=== PATIENT | male | born 1950 | race Caucasian/White ===

== ENCOUNTER 2017-07-18 18:41 | Emergency (ER) | payer BC, OTHER ==
--- NOTE | 2017-07-18 19:03 | EDPHY ---
HPI/HX/ROS/PE/MDM Narrative: CHIEF COMPLAINT: Finger injury; near-syncope in triage HPI: The patient is a 66 y/o male with cardiac disease history complaining of left finger pain secondary to falling on his hand one hour ago. He reports tripping over the vacuum while walking and landed poorly on his left hand. He had immediate pain and deformity in his left 4th and 5th fingers and "popped" his little finger back into a more anatomic position, his ring finger is still displaced. He denies striking his head or losing consciousness. He does think he bumped the left side of his chest on the ground, but denies pain or dyspnea. While in triage he became lightheaded and felt like he would faint and was brought back to a room promptly for this. He does not feel lightheaded currently and denies chest pain, dyspnea, or other complaints. He admits to drinking alcohol tonight. REVIEW OF SYSTEMS: Aside from elements discussed in the HPI, a comprehensive 10-point review of systems was reviewed and is negative. PMH: Hypercholesterolemia, asthma, hypertension/pulmonary hypertension, CAD, hernia repair FAMILY HISTORY: Father had CA, family history of unexplained SOCIAL HISTORY: Plays [employer]. Lives independently in [place]. Prior medical records reviewed including cardiac cath report 01/22/10 and ED visit 01/25/12 for fall. PHYSICAL EXAM: General:Patient is alert, in no acute distress. ENT:Eyes are normal to inspection. ENT inspection normal. Neck: Normal inspection. Full range of motion. Respiratory:No respiratory distress. Breath sounds normal bilaterally. Cardiovascular: Regular rate and rhythm. Strong peripheral pulses. Normal cap refill. Abdomen:The abdomen is nontender to palpation. There are no peritoneal signs. Back: Normal to inspection. No tenderness to palpation. Skin: Normal color. No rash. Warm and mildly diaphoretic. Extremities: Left hand shows dislocation deformity to PIPJ left ring finger, normal cap refill, and skin is intact. Otherwise normal appearance. Full range of motion. Neuro: Oriented x3. Normal motor function. Normal sensory function. ED Course: This is a 66 y/o male with cardiac disease who presents with left ring finger pain and deformity secondary to what he describes as a mechanical fall one hour ago. He has a dislocation deformity to the PIP joint of his left ring finger with normal cap refill and intact skin. He is mildly diaphoretic, but otherwise well-appearing. Plan for IV, labs, EKG, and hand x-ray. 1L IV NS ordered. The 12 lead EKG was interpreted by myself. See hard copy and/or "tracemaster" electronic copy for interpretation. Left hand x-ray: dislocation of left ring PIP joint. Possible chip or avulsion fractures suspected at the base of the third and fifth middle phalanx at the PIP joint Reevaluated patient and discussed treatment options for dislocation. He would like to try IV pain medication and manual reduction without local anesthetic first. He is also now complaining of left rib pain where he struck the ground. Pain is worse with inspiration. Chest x-ray ordered. Chest x-ray: negative for acute process. Procedure: Reduction of dislocated left ring PIP joint Time-out completed immediately before the procedure. IV established. Placed on pulse oximeter and monitor. Neurovascular exam intact pre-procedure. Given 50mcg IV Fentanyl for pain. The left ring finger PIPJ dislocation was reduced using traction. Reassessed post-procedure. Neurovascular status intact-Normal Motor and sensory exam. Exam indicated reduction. Confirmed reduction on X-ray. Splint applied by tech. The procedure was performed by myself, Dr. Franco. Patient will be discharged in splint with standard dislocation and contusion care and follow up instructions. He's been referred to hand surgery for follow up. Return precautions discussed. He is comfortable with this plan. - Data Points Imaging Results: Imaging Impressions Finger X-Ray 07/18/17 19:04 Impression: 1. Dislocation of the left fourth middle phalanx at the PIP joint with displacement of the distal aspect along the dorsal ulnar side. 2. Possible chip or avulsion fractures suspected at the base of the third and fifth middle phalanx at the PIP joint. Clinical correlation recommended. Chest X-Ray 07/18/17 19:25 Impression: No new abnormality seen within the chest. Imaging: I viewed and interpreted images myself Laboratory Results: Laboratory Results 07/18/17 19:06 07/18/17 19:06 07/18/17 07/18/17 19:06 19:06 WBC 4.63 10^3/uL 10^3/uL (3.80-9.50) RBC 4.41 10^6/uL 10^6/uL (4.40-6.38) Hgb 14.9 g/dL g/dL (13.7-17.5) Hct 41.5 % % (40.0-51.0) MCV 94.1 fL fL (81.5-99.8) MCH 33.8 pg pg (27.9-34.1) MCHC 35.9 g/dL g/dL (32.4-36.7) RDW 12.7 % % (11.5-15.2) Plt Count 174 10^3/uL 10^3/uL (150-400) MPV 9.5 fL fL (8.7-11.7) Neut % (Auto) 56.4 % % (39.3-74.2) Lymph % (Auto) 26.8 % % (15.0-45.0) [place] % (Auto) 12.7 % % (4.5-13.0) Eos % (Auto) 2.4 % % (0.6-7.6) Baso % (Auto) 1.3 % % (0.3-1.7) Nucleat RBC Rel Count 0.0 % % (0.0-0.2) Absolute Neuts (auto) 2.61 10^3/uL 10^3/uL (1.70-6.50) Absolute Lymphs (auto) 1.24 10^3/uL 10^3/uL (1.00-3.00) Absolute Monos (auto) 0.59 10^3/uL 10^3/uL (0.30-0.80) Absolute Eos (auto) 0.11 10^3/uL 10^3/uL (0.03-0.40) Absolute Basos (auto) 0.06 10^3/uL 10^3/uL (0.02-0.10) Absolute Nucleated RBC 0.00 10^3/uL 10^3/uL (0-0.01) Immature Gran % 0.4 % % (0.0-1.1) Immature Gran # 0.02 10^3/uL 10^3/uL (0.00-0.10) Sodium 135 mEq/L mEq/L (135-145) Potassium 3.3 mEq/L L mEq/L (3.5-5.2) Chloride 89 mEq/L L mEq/L (97-110) Carbon Dioxide 26 mEq/l mEq/l (22-31) Anion Gap 20 mEq/L H mEq/L (8-16) BUN 14 mg/dL mg/dL (7-23) Creatinine 1.4 mg/dL H mg/dL (0.7-1.3) Estimated GFR 51 Glucose 151 mg/dL H mg/dL (70-100) Calcium 9.5 mg/dL mg/dL (8.5-10.4) Medications Given: Discontinued Medications Fentanyl (Sublimaze) 50 mcg IVP EDNOW ONE Stop: 07/18/17 19:56 Last Admin: 07/18/17 19:59 Dose: 50 mcg Sodium Chloride (Ns) 1,000 mls @ 0 mls/hr IV EDNOW ONE; Wide Open PRN Reason: Protocol Stop: 07/18/17 19:13 Last Admin: 07/18/17 19:16 Dose: 1,000 mls General Time Seen by Provider: 07/18/17 18:55 Initial Vital Signs: Initial Vital Signs Temperature (C) 36.8 C 07/18/17 19:02 Heart Rate 100 07/18/17 19:02 Respiratory Rate 16 07/18/17 19:02 O2 Sat (%) 100 07/18/17 19:02 O2 Delivery Mode Room Air O2 (L/minute) 2 Allergies/Adverse Reactions: Penicillins Allergy (Intermediate, Verified 01/25/12 21:12) Rash Home Medications: Medication Instructions Recorded Albuterol 5 mg/ml INH [Proventil] 0 mg IH 01/25/12 Albuterol Hfa Anes Only [Proair 2 puffs IH QID 01/25/12 Hfa Icu (RX)] Aspirin [Aspirin 81mg (OTC)] 81 mg PO DAILY 01/25/12 Carvedilol [Coreg] 0 mg PO 01/25/12 Lisinopril 0 mg PO 01/25/12 Simvastatin 0 mg PO 01/25/12 Departure - Departure Disposition: Home, Routine, Self-Care Clinical Impression: Dislocation of left ring finger Qualifiers: Encounter type: initial encounter Qualified Code(s): S63.255A - Unspecified dislocation of left ring finger, initial encounter Closed avulsion fracture of proximal phalanx of finger Qualifiers: Encounter type: initial encounter Qualified Code(s): S62.619A - Displaced fracture of proximal phalanx of unspecified finger, initial encounter for closed fracture Contusion of rib on left side Qualifiers: Encounter type: initial encounter Qualified Code(s): S20.212A - Contusion of left front wall of thorax, initial encounter Condition: Good Instructions: Finger Dislocation (ED), Rib Contusion (ED) Additional Instructions: 1. Take 600mg ibuprofen every 6-8 hours as needed for pain over the next few days. You can also apply ice to sore areas intermittently over the next 24-48 hours if helpful for pain. 2. Keep splint on until follow up with hand specialist. 3. Follow up with hand surgeon next week for reevaluation. 4. Return to the ED for severe pain, chest pain, difficulty breathing, weakness or numbness in your hand, or other worsening of condition. Referrals: Ventura Spencer MD [Primary Care Provider] - As per Instructions David Bustillos MD [Medical Doctor] - As per Instructions Report Scribed for: Ezio Franco Report Scribed by: Donna Hurtado Date of Report: 07/18/17 Time of Report: 19:09 Physician Review and Approval Statement: Portions of this note were transcribed by an ED scribe. I personally performed the history, physical exam, and medical decision making; and confirm the accuracy of the information in the transcribed note.
--- NOTE | 2017-07-18 19:05 | CPEKG ---
Heart Rate: 95 RR Interval: 632 P-R Interval: 124 QRSD Interval: 92 QT Interval: 356 QTC Interval: 448 P [place]: 55 QRS [place]: 30 T Wave [place]: 41 EKG Severity - NORMAL ECG - EKG Impression: SINUS RHYTHM Electronically Signed By: Ezio Franco 19-Jul-2017 16:36:46
[2017-07-18 19:12] LABS: PLATELET COUNT 174 10^3/uL (150-400)
[2017-07-18] MEDS ORDERED: NS 1,000 ML IV ONE (19:12)
[2017-07-18] MEDS ORDERED: fentaNYL 100 MCG/2 ML INJ ONE (19:47)
[2017-07-18] MEDS ORDERED: fentaNYL 100 MCG/2 ML INJ IVP ONE (19:55)
[2017-07-18 21:11] VITALS: BP 119/67; PULSE 85; RESP 19; TEMP 98.2; O2SAT 93
== END 2017-07-18 21:13 | disposition home or self-care (01) ==
PROC: 0RSXX5Z Reposition Left Finger Phalangeal Joint with External Fixation Device, External Approach (ICD-10-PCS; principal; 2017-07-18)
DX: S63.285A Dislocation of proximal interphalangeal joint of left ring finger, initial encounter (principal); I10 Essential (primary) hypertension; J45.909 Unspecified asthma, uncomplicated; I25.10 Atherosclerotic heart disease of native coronary artery without angina pectoris; S20.212A Contusion of left front wall of thorax, initial encounter; E86.9 Volume depletion, unspecified; Z79.82 Long term (current) use of aspirin; W01.0XXA Fall on same level from slipping, tripping and stumbling without subsequent striking against object, initial encounter; Y99.8 Other external cause status; Y93.01 Activity, walking, marching and hiking
CPT/HCPCS: 26770; 71046; 73140; 93005; 96361; 96374; 99285; J3010

== ENCOUNTER → 2017-10-23 | Outpatient (CLI) | payer OTHER | LOC: FIMAGING 17:38 | PROVIDERS: ATTEND Internal Medicine | DX: G31.9 Degenerative disease of nervous system, unspecified (principal); R90.82 White matter disease, unspecified ==

== ENCOUNTER 2017-11-04 19:08 | Emergency (ER) | payer OTHER ==
--- NOTE | 2017-11-04 20:14 | EDPHY ---
H & P Smoking Status: Never smoked Time Seen by Provider: 11/04/17 20:13 HPI/ROS: Chief complaint. Bilateral feet swelling HPI. 66-year-old male presents emergency but with bilateral foot swelling for 1 day as well as bilateral calf pain. No similar symptoms previously. No chest pain or shortness of breath. No recent travel though he has had some decreased activity recently. No injury. No fever. ROS Constitutional. no fever/chills, no weakness Eyes. no problems with vision ENT. no sore throat, no nasal drainage Cardiovascular. no chest pain Respiratory. no shortness of breath, no cough Abdominal. no abdominal pain, no nausea/vomiting, no diarrhea . no problems urinating MS. Bilateral foot swelling and calf pain Skin. no rash Lymph. no swollen glands Neuro. no headache, no dizziness, no difficulty walking or with speech (German Bajwa) Past Medical/Surgical History: Hyperlipidemia, hypertension, asthma, cardiomyopathy, pulmonary hypertension, atrial fibrillation (German Bajwa) Social History: , nonsmoker, no alcohol (German Bajwa) Physical Exam: General Appearance: Alert well-developed male mild distress vital signs stable Eyes: Pupils equal and round no pallor or injection. ENT, Mouth: Mucous membranes are moist. Respiratory: There are no retractions, lungs are clear to auscultation. Cardiovascular: Regular rate and rhythm. Gastrointestinal: Abdomen is soft and nontender, no masses, bowel sounds normal. Neurological: Awake and alert, sensory and motor exams grossly normal. Skin: Warm and dry, no rashes. Musculoskeletal: Neck is supple nontender. Extremities bilateral moderate foot swelling and calf tenderness Psychiatric: Patient is oriented X 3, there is no agitation. (German Bajwa) Constitutional: Initial Vital Signs Temperature (C) 36.7 C 11/04/17 19:40 Heart Rate 97 11/04/17 19:40 Respiratory Rate 18 11/04/17 19:40 Blood Pressure 142/107 H 11/04/17 19:40 O2 Sat (%) 92 11/04/17 19:40 O2 Delivery Mode Room Air Allergies/Adverse Reactions: Penicillins Allergy (Intermediate, Verified 11/04/17 19:37) Rash bee venom protein (honey bee) Allergy (Verified 11/04/17 19:37) Home Medications: Medication Instructions Recorded Albuterol 5 mg/ml INH [Proventil] 0 mg IH 01/25/12 Albuterol Hfa Anes Only [Proair 2 puffs IH QID 01/25/12 Hfa Icu (RX)] Carvedilol [Coreg] 0 mg PO 01/25/12 Lisinopril 0 mg PO 01/25/12 Simvastatin 0 mg PO 01/25/12 Eliquis 11/04/17 Furosemide [Lasix 40 MG (*)] 40 mg PO DAILY #4 tab 11/04/17 Medical Decision Making - Diagnostics Imaging Results: Imaging Impressions Chest X-Ray 11/04/17 20:14 Impression: Borderline compensated CHF without acute decompensation. Extremity Venous Study 11/04/17 20:25 Impression: No evidence of deep vein thrombosis in the right or left lower extremity. Results communicated to Dr. Bajwa at 10:21 pm. Chest x-ray interpreted by me appears to show mild CHF. No evidence for pneumonia (German Bajwa) Procedures: IV normal saline (German Bajwa) ED Course/Re-evaluation: Patient remains stable (German Bajwa) Ultrasound results show no evidence of DVT in either leg. Patient has been given a limited supply of Lasix by Dr. Bajwa. Patient be discharged have close follow-up with his PCP. Additionally return precautions discussed with him. He understands return emergency room if develops worsening shortness of breath, worsening swelling questions or concerns. (Luis Angel Branham) Differential Diagnosis: I considered CHF as well as DVT as well as dependent edema (German Bajwa) Care Turn Over: Care to Dr. Branham at 10:00 p.m. (German Bajwa) - Data Points Laboratory Results: Laboratory Results 11/04/17 20:07 11/04/17 20:07 11/04/17 11/04/17 20:07 20:07 WBC 4.99 10^3/uL 10^3/uL (3.80-9.50) RBC 3.63 10^6/uL L 10^6/uL (4.40-6.38) Hgb 12.7 g/dL L g/dL (13.7-17.5) Hct 34.7 % L % (40.0-51.0) MCV 95.6 fL fL (81.5-99.8) MCH 35.0 pg H pg (27.9-34.1) MCHC 36.6 g/dL g/dL (32.4-36.7) RDW 12.7 % % (11.5-15.2) Plt Count 199 10^3/uL 10^3/uL (150-400) MPV 9.4 fL fL (8.7-11.7) Neut % (Auto) 61.0 % % (39.3-74.2) Lymph % (Auto) 24.2 % % (15.0-45.0) [place] % (Auto) 10.4 % % (4.5-13.0) Eos % (Auto) 2.4 % % (0.6-7.6) Baso % (Auto) 1.4 % % (0.3-1.7) Nucleat RBC Rel Count 0.0 % % (0.0-0.2) Absolute Neuts (auto) 3.04 10^3/uL 10^3/uL (1.70-6.50) Absolute Lymphs (auto) 1.21 10^3/uL 10^3/uL (1.00-3.00) Absolute Monos (auto) 0.52 10^3/uL 10^3/uL (0.30-0.80) Absolute Eos (auto) 0.12 10^3/uL 10^3/uL (0.03-0.40) Absolute Basos (auto) 0.07 10^3/uL 10^3/uL (0.02-0.10) Absolute Nucleated RBC 0.00 10^3/uL 10^3/uL (0-0.01) Immature Gran % 0.6 % % (0.0-1.1) Immature Gran # 0.03 10^3/uL 10^3/uL (0.00-0.10) Sodium 134 mEq/L L mEq/L (135-145) Potassium 3.4 mEq/L mEq/L (3.3-5.0) Chloride 97 mEq/L mEq/L (97-110) Carbon Dioxide 25 mEq/l mEq/l (22-31) Anion Gap 12 mEq/L mEq/L (8-16) BUN 15 mg/dL mg/dL (7-23) Creatinine 1.0 mg/dL mg/dL (0.7-1.3) Estimated GFR > 60 Glucose 84 mg/dL mg/dL (70-100) Calcium 9.6 mg/dL mg/dL (8.5-10.4) NT-Pro-B Natriuret Pep 961 pg/mL H pg/mL (0-125) Departure - Departure Disposition: Home, Routine, Self-Care Clinical Impression: Pedal edema Condition: Good Instructions: Edema (ED) Additional Instructions: Elevate legs as much as possible. Activity as tolerated. Lasix daily to help get rid of the swelling in your feet. Return for worsening symptoms. Recheck by Dr. Spencer in 2-3 days Referrals: Ventura Spencer MD [Primary Care Provider] - 2-3 days, if not improved Prescriptions: Furosemide [Lasix 40 MG (*)] 40 mg PO DAILY #4 tab
[2017-11-04 20:33] LABS: PLATELET COUNT 199 10^3/uL (150-400)
[2017-11-04 22:46] VITALS: BP 161/94
== END 2017-11-04 22:46 | disposition home or self-care (01) ==
DX: R60.0 Localized edema (principal); I10 Essential (primary) hypertension; J45.909 Unspecified asthma, uncomplicated; Z79.01 Long term (current) use of anticoagulants

== ENCOUNTER 2018-01-28 17:43 | Inpatient (IN) | payer OTHER ==
--- NOTE | 2018-01-28 17:48 | EDPHY ---
H & P Time Seen by Provider: 01/28/18 17:47 HPI/ROS: CHIEF COMPLAINT: Low blood pressure HISTORY OF PRESENT ILLNESS: Patient tells me wanted to [facility] today to learn how to use his home blood pressure cuff and he was sent here because his blood pressure was"in the 70s."Essentially has no symptoms except for feeling a little bit tired over the past couple of weeks. He says sometimes he gets dizzy at home when he stands up but no syncope and no palpitations. Denies chest pain or shortness of breath to me. REVIEW OF SYSTEMS: Eye: no change in vision ENT: no sore throat Cardiac: No chest pain, no syncope, no palpitations. Pulmonary: no cough or SOB Abdomen: no vomiting, diarrhea, abdominal pain Musculoskeletal: No leg swelling. Skin: no rash Neuro: no headache, family notes intermittent confusion last this past weekend Constitutional: no fever : no urinary symptoms A comprehensive 10 point review of systems is otherwise negative aside from elements mentioned in the history of present illness. PAST MEDICAL HISTORY: Atrial fibrillation on Eliquis, hypertension, hyperlipidemia, asthma. Social history: Nonsmoker, primary care [facility]. Stopped Lasix 2 weeks ago. General Appearance: Alert and conversant, cooperative. Eyes: No scleral icterus. ENT, Mouth: Dry mucous membranes. Respiratory: Normal respiratory effort, breath sounds equal, lungs are clear to auscultation. Cardiovascular: Distant heart sounds, no murmur. Gastrointestinal: Abdomen is soft and non tender. Neurological: Alert, face symmetric, normal motor and sensory in extremities. Normal [id number] bilaterally, no pronator drift, fluent speech. Not confused here, normal sensorium. Skin: Warm and dry, no rashes. Musculoskeletal: No peripheral edema. Psychiatric: Not agitated. Emergency Department course/MDM: Patient says he does not eat or drink very much. He has a dry tongue, will give IV fluids, EKG and labs, differential includes likely orthostatic hypotension. 1850: Re-examined, has tightness in his chest and a bit of shortness of breath feels like his asthma. Very slight expiratory wheezing. Chest x-ray and D- dimer ordered. 1924: Chest x-ray negative personally interpreted, D-dimer less than point 1 times age. EKG not acutely ischemic. 193: The patient now severe nausea and vomiting, Zofran 4 mg IV. Will admit for treatment and evaluation, the patient still says he "feels terrible" but no definite diagnosis at this time. Smoking Status: Never smoked Constitutional: Initial Vital Signs Temperature (C) 36.6 C 01/28/18 17:47 Heart Rate 89 01/28/18 17:47 Respiratory Rate 18 01/28/18 17:47 Blood Pressure 115/83 H 01/28/18 17:47 O2 Sat (%) 92 01/28/18 17:47 O2 Delivery Mode Room Air Allergies/Adverse Reactions: sunflower seed Allergy (Severe, Unverified 01/28/18 20:33) Anaphylaxis Penicillins Allergy (Intermediate, Verified 11/04/17 19:37) Rash bee venom protein (honey bee) Allergy (Verified 11/04/17 19:37) Home Medications: Medication Instructions Recorded Albuterol [Proventil Inhaler HFA 1 - 2 puffs IH Q4H PRN 01/28/18 (*)] Apixaban [Eliquis] 5 mg PO BID 01/28/18 Budesonide 180 Mcg INH [Pulmicort 1 puffs IH DAILY 01/28/18 180Mcg Flexhaler (*)] Carvedilol [Coreg (*)] 25 mg PO BIDMEAL 01/28/18 Cholecalciferol Vit D3 [Vitamin D3 2,000 units PO DAILY 01/28/18 (*)] Furosemide [Lasix 40 MG (*)] 40 mg PO DAILY PRN 01/28/18 Lisinopril [Zestril 10 mg (*)] 10 mg PO DAILY 01/28/18 Potassium Cl [Klor-Con 20 meq (*)] 20 meq PO DAILY PRN 01/28/18 Simvastatin [Zocor] 40 mg PO HS 01/28/18 Medical Decision Making - Diagnostics EKG Interpretation: 12-lead EKG interpreted by me; official reading is in computer system. My interpretation is sinus rhythm rate 93 with late anterior RS transition otherwise normal. Imaging Results: Imaging Impressions Chest X-Ray 01/28/18 18:49 Impression: No evidence for acute cardiopulmonary abnormality. Stable chronic findings as above. Consult/Admit Bed Type: [place] [id number] - Data Points Laboratory Results: Laboratory Results 01/28/18 17:55 01/28/18 17:55 Medications Given: Apixaban (Eliquis) 5 mg PO BID [facility] Stop: 07/27/18 21:59 Last Admin: 01/29/18 08:05 Dose: 5 mg Atorvastatin Calcium (Lipitor) 20 mg PO DAILY [facility] Stop: 07/28/18 08:59 Last Admin: 01/29/18 08:04 Dose: 20 mg Carvedilol (Coreg) 25 mg PO BIDMEAL [facility] Stop: 07/27/18 22:44 Last Admin: 01/29/18 08:04 Dose: 25 mg Cholecalciferol (Vitamin D) 2,000 units PO DAILY [facility] Stop: 07/28/18 08:59 Last Admin: 01/29/18 08:05 Dose: 2,000 units Lisinopril (Zestril) 10 mg PO DAILY [facility] Stop: 07/28/18 08:59 Last Admin: 01/29/18 08:04 Dose: 10 mg Discontinued Medications Albuterol (Proventil Inhaler) 1 - 2 puffs IH Q4H [facility] Stop: 07/27/18 21:44 Last Admin: 01/28/18 21:59 Dose: Not Given Albuterol (Proventil Inhaler) 1 - 2 puffs IH Q4H [facility] Stop: 07/28/18 01:59 Last Admin: 01/29/18 05:22 Dose: Not Given Sodium Chloride (Ns) 500 mls @ 0 mls/hr IV EDNOW ONE; Wide Open PRN Reason: Protocol Stop: 01/28/18 17:55 Last Admin: 01/28/18 17:59 Dose: 500 mls Sodium Chloride (Ns) 1,000 mls @ 0 mls/hr IV EDNOW ONE; Wide Open PRN Reason: Protocol Stop: 01/28/18 19:31 Last Admin: 01/28/18 19:39 Dose: Not Given Ondansetron HCl (Zofran) 4 mg IVP EDNOW ONE Stop: 01/28/18 19:31 Last Admin: 01/28/18 19:32 Dose: 4 mg Point of Care Test Results: Chemistry 01/28/18 18:47 POC Troponin I 0.04 ng/mL ng/mL (0.00-0.08) Departure - Departure Disposition: [facility] Acute Clinical Impression: Dizziness Hypotension Qualifiers: Hypotension type: unspecified hypotension type Qualified Code(s): I95.9 - Hypotension, unspecified Condition: Good
[2018-01-28] MEDS ORDERED: NS 500 ML IV ONE (17:54)
[2018-01-28 18:06] LABS: PLATELET COUNT 150 10^3/uL (150-400)
--- NOTE | 2018-01-28 19:22 | CPEKG ---
Test Reason : OPEN Blood Pressure : / mmHG Vent. Rate : 093 BPM Atrial Rate : 094 BPM P-R Int : 121 ms QRS Dur : 083 ms QT Int : 367 ms P-R-T Axes : 000 016 057 degrees QTc Int : 457 ms Sinus rhythm Late anterior RS transition Confirmed by Valdo Dia ([id number]) on 01/28/2018 7:21:40 PM Referred By: Confirmed By:Valdo Dia
[2018-01-28] MEDS ORDERED: ONDANSETRON 4 MG/2 ML VIAL ONE (19:29)
[2018-01-28] MEDS ORDERED: ONDANSETRON 4 MG/2 ML VIAL IVP ONE (19:30)
[2018-01-28] MEDS ORDERED: NS 1,000 ML IV ONE (19:30)
[2018-01-28] MEDS ORDERED: ONDANSETRON DISINTEGRATING 4 MG TAB PO PRN (21:30)
[2018-01-28] MEDS ORDERED: ONDANSETRON 4 MG/2 ML VIAL IVP PRN (21:30)
[2018-01-28] MEDS ORDERED: oxyCODONE IR 5 MG TAB PO PRN (21:30)
[2018-01-28] MEDS ORDERED: HYDROCODONE/APAP 5/325 TAB PO PRN (21:30)
[2018-01-28] MEDS ORDERED: FUROSEMIDE 40 MG TAB PO PRN (21:36)
[2018-01-28] MEDS ORDERED: POTASSIUM CL 20 MEQ TAB PO PRN (21:36)
[2018-01-28] MEDS ORDERED: ALBUTEROL 60 PUFFS/8 GM MDI IH SCH (21:45)
[2018-01-28] MEDS: APIXABAN 5 MG TAB PO SCH (23:09)
[2018-01-28] MEDS: CARVEDILOL 25 MG TAB PO SCH (23:09)
--- NOTE | 2018-01-29 00:31 | PDGENHP ---
History and Physical - Chief Complaint dizzyness, gait instability, confusion - History of Present Illness 67 yo M with PMH of HTN, HLD, A fib presenting with complaints of dizzyness and low BP appreciated at [facility] PCP's office. Patient has ahd issues with dizziness on and off for some time, and for the last couple of days he was feeling so weak and dizzy and lightheaded that he was essentially unable to get out of bed. He notes he finally forced himself out of bed and then eas able to dive himself to his PCP office to have his BP cuff checked--they noiced his BP at that time was in the 70s systolic. He was sent to ER for further evaluation. He states that for the last several months he has had issues with dizziness, tremulousness, confusion, fatigue and lethargy/general exhaustion. He states when he walks he occasionally will have issues with staggering and his balance. He forgets things and for instance will think it is dinner time when it is actually 6 in the morning. He has been worked up by a neurologist for this, though he says the neurologist he used to see no longer works at [facility]. He did have a brain MRI he says this summer which was normal. On arrival in the ER his BP was normal. History Information - Allergies/Home Medication List Allergies/Adverse Reactions: sunflower seed Allergy (Severe, Unverified 01/28/18 20:33) Anaphylaxis Penicillins Allergy (Intermediate, Verified 11/04/17 19:37) Rash bee venom protein (honey bee) Allergy (Verified 11/04/17 19:37) Home Medications: Albuterol [Proventil Inhaler HFA (*)] 1 - 2 puffs IH Q4H 01/28/18 [Last Taken ] Apixaban [Eliquis] 5 mg PO BID 01/28/18 [Last Taken 01/28/18 11:00] Budesonide 180 Mcg INH [Pulmicort 180Mcg Flexhaler (*)] 1 puffs IH DAILY [Last Taken 01/28/18] Carvedilol [Coreg (*)] 25 mg PO BIDMEAL 01/28/18 [Last Taken 01/28/18 11:00] Cholecalciferol Vit D3 [Vitamin D3 (*)] 2,000 units PO DAILY 01/28/18 [Last Taken 01/28/18] Furosemide [Lasix 40 MG (*)] 40 mg PO DAILY PRN 01/28/18 [Last Taken 1 Week Ago ~01/21/18] Lisinopril [Zestril 10 mg (*)] 10 mg PO DAILY 01/28/18 [Last Taken 01/28/18 11: 00] Potassium Cl [Klor-Con 20 meq (*)] 20 meq PO DAILY PRN 01/28/18 [Last Taken 1 Week Ago ~01/21/18] Simvastatin [Zocor] 40 mg PO HS 01/28/18 [Last Taken 01/27/18] I have personally reviewed and updated: family history, medical history, social history, surgical history - Past Medical History atrial fibrillation (sp CV), asthma, hypertension, hyperlipidemia - Surgical History Reports: no pertinent surgical hx - Family History Positive for: CAD - Social History Smoking Status: Never smoked Alcohol Use: Rarely Drug Use: None Additional social history: lives alone, daughter accompanies him here Review of Systems Review of Systems: ROS: 10pt was reviewed & negative except for what was stated in HPI & below Physical Exam Physical Exam: Temp Pulse Resp BP Pulse Ox 36.5 C 98 18 162/103 H 93 01/28/18 23:41 01/28/18 23:41 01/28/18 23:41 01/28/18 23:41 01/28/18 23:41 Constitutional: no apparent distress, appears nourished Eyes: PERRL, anicteric sclera, EOMI (slightly jerky eye movements) Ears, Nose, Mouth, Throat: moist mucous membranes, hearing normal Cardiovascular: regular rate and rhythym, no murmur, rub, or gallop Respiratory: no respiratory distress, no rales or rhonchi Gastrointestinal: normoactive bowel sounds, soft, non-tender abdomen Skin: warm, normal color Musculoskeletal: full muscle strength Neurologic: AAOx3, sensation intact bilaterally, CN II-XII Intact, other ( coordination decreased on the left) Psychiatric: interacting appropriately, not anxious Lab Data & Imaging Review 01/28/18 17:55 01/28/18 17:55 WBC 4.51 10^3/uL (3.80-9.50) 01/28/18 17:55 RBC 3.49 10^6/uL (4.40-6.38) L 01/28/18 17:55 Hgb 12.1 g/dL (13.7-17.5) L 01/28/18 17:55 Hct 34.3 % (40.0-51.0) L 01/28/18 17:55 MCV 98.3 fL (81.5-99.8) 01/28/18 17:55 MCH 34.7 pg (27.9-34.1) H 01/28/18 17:55 MCHC 35.3 g/dL (32.4-36.7) 01/28/18 17:55 RDW 12.5 % (11.5-15.2) 01/28/18 17:55 Plt Count 150 10^3/uL (150-400) 01/28/18 17:55 MPV 9.4 fL (8.7-11.7) 01/28/18 17:55 Neut % (Auto) 76.9 % (39.3-74.2) H 01/28/18 17:55 Lymph % (Auto) 12.9 % (15.0-45.0) L 01/28/18 17:55 [place] % (Auto) 7.8 % (4.5-13.0) 01/28/18 17:55 Eos % (Auto) 0.9 % (0.6-7.6) 01/28/18 17:55 Baso % (Auto) 1.3 % (0.3-1.7) 01/28/18 17:55 Nucleat RBC Rel Count 0.0 % (0.0-0.2) 01/28/18 17:55 Absolute Neuts (auto) 3.47 10^3/uL (1.70-6.50) 01/28/18 17:55 Absolute Lymphs (auto) 0.58 10^3/uL (1.00-3.00) L 01/28/18 17:55 Absolute Monos (auto) 0.35 10^3/uL (0.30-0.80) 01/28/18 17:55 Absolute Eos (auto) 0.04 10^3/uL (0.03-0.40) 01/28/18 17:55 Absolute Basos (auto) 0.06 10^3/uL (0.02-0.10) 01/28/18 17:55 Absolute Nucleated RBC 0.00 10^3/uL (0-0.01) 01/28/18 17:55 Immature Gran % 0.2 % (0.0-1.1) 01/28/18 17:55 Immature Gran # 0.01 10^3/uL (0.00-0.10) 01/28/18 17:55 RBC/WBC/PLT Morphology TNP 01/28/18 17:55 Platelet Estimate TNP 01/28/18 17:55 D-Dimer 0.60 ug/mLFEU (0.00-0.50) H 01/28/18 18:00 Sodium 134 mEq/L (135-145) L 01/28/18 17:55 Potassium 3.9 mEq/L (3.3-5.0) 01/28/18 17:55 Chloride 97 mEq/L (97-110) 01/28/18 17:55 Carbon Dioxide 21 mEq/l (22-31) L 01/28/18 17:55 Anion Gap 16 mEq/L (8-16) 01/28/18 17:55 BUN 20 mg/dL (7-23) 01/28/18 17:55 Creatinine 0.9 mg/dL (0.7-1.3) 01/28/18 17:55 Estimated GFR > 60 01/28/18 17:55 Glucose 204 mg/dL (70-100) H 01/28/18 17:55 Calcium 8.9 mg/dL (8.5-10.4) 01/28/18 17:55 POC Troponin I 0.04 ng/mL (0.00-0.08) 01/28/18 18:47 Troponin I < 0.012 ng/mL (0.000-0.034) 01/28/18 21:45 Vitamin B12 369 pg/mL (239-931) 01/28/18 21:45 TSH 1.760 uIU/mL (0.465-4.680) 01/28/18 21:45 Urine Color YELLOW 01/28/18 22:55 Urine Appearance CLEAR 01/28/18 22:55 Urine pH 5.0 (5.0-7.5) 01/28/18 22:55 Ur Specific [place] 1.018 (1.002-1.030) 01/28/18 22:55 Urine Protein NEGATIVE (NEGATIVE) 01/28/18 22:55 Urine Ketones 1+ (NEGATIVE) H 01/28/18 22:55 Urine Blood NEGATIVE (NEGATIVE) 01/28/18 22:55 Urine Nitrate NEGATIVE (NEGATIVE) 01/28/18 22:55 Urine Bilirubin NEGATIVE (NEGATIVE) 01/28/18 22:55 Urine Urobilinogen 2.0 EU (0.2-1.0) H 01/28/18 22:55 Ur Leukocyte Esterase NEGATIVE (NEGATIVE) 01/28/18 22:55 Urine RBC 1-3 /hpf (0-3) 01/28/18 22:55 Urine WBC 1-3 /hpf (0-3) 01/28/18 22:55 Ur Epithelial Cells TRACE /lpf (NONE-1+) 01/28/18 22:55 Hyaline Casts 5-15 /lpf (0-1) 01/28/18 22:55 Urine Mucus 1+ /lpf (NONE-1+) 01/28/18 22:55 Urine Glucose 2+ (NEGATIVE) H 01/28/18 22:55 Visualized and Interpreted Chest x-ray results: Yes Chest X-Ray results: no infiltrate Visualized and Interpreted EKG results: Yes EKG Interpretation: Positive for: normal sinsus rhythm Assessment & Plan Assessment: Dizziness (Acute) Hypotension (Acute) 67 yo M with PMH of HTN, HLD, AFib presenting with multiple complaints including dizziness, gait instability and intermittent confusion # gait instability/cognitive issues/dizziness: symptoms do appear to be progressive and somewhat strange, has been evaluated by neurology per his report but unable to find those records, he states he has had an MRI which was normal several months ago. Would have concerns for NPH or other similar issue but will ask neurology to evaluate and hold off on imaging at this time. Will check tsh, b12, syphilis testing. Will monitor on tele for possible cardiac issue as next. # near syncope/labile BP: reviewed old records from Dr. Mendez who noted very labile BP many years ago, extensive testing performed at that time, sounds as though this is still an issue with reported SBP in 70s at [facility] and then in the 130s here in ER. Will monitor on tele, will obtain echocardiogram in am, request that cardiology evaluate in the am as well # acute encephalopathy: patient reporting issues with worsening cognitive decline that is intermittent and somewhat unusual, as per above, has been w/u by neuro in the past. Neuro consult, otherwise labs/w/u as above # a fib: s/p [facility] [place] without recurrence per his report, tele monitoring, echo in am # asthma: without e/o acute exacerbation # observation status Patient new to my care. Old records reviewed and summarized as above. Care plan reviewed with ER doctor. Further hx obtained from patients daughter present at bedside.
[2018-01-29] MEDS: ALBUTEROL 60 PUFFS/8 GM MDI IH SCH ×2 (01:44→05:22)
[2018-01-29 05:04] LABS: PLATELET COUNT 131 10^3/uL (150-400)
[2018-01-29] MEDS ORDERED: ALBUTEROL 60 PUFFS/8 GM MDI IH PRN (05:30)
[2018-01-29] MEDS: ATORVASTATIN CALCIUM 20 MG TAB PO SCH (08:04)
[2018-01-29] MEDS: CARVEDILOL 25 MG TAB PO SCH ×2 (08:04→18:19)
[2018-01-29] MEDS: LISINOPRIL 10 MG TAB PO SCH (08:04)
[2018-01-29] MEDS: CHOLECALCIFEROL VIT D3 1,000 UNITS TAB PO SCH (08:05)
[2018-01-29] MEDS: APIXABAN 5 MG TAB PO SCH ×2 (08:05→21:08)
[2018-01-29] MEDS ORDERED: ENOXAPARIN 40 MG/0.4 ML SYR SC SCH (09:00)
--- NOTE | 2018-01-29 10:21 | GCON ---
NEUROLOGY CONSULT REFERRING PHYSICIAN: Jack Russell MD CHIEF COMPLAINT: Fatigue. HISTORY OF PRESENT ILLNESS: The patient is a very pleasant 67-year-old gentleman who apparently has nonischemic cardiomyopathy, history of congestive heart failure, and atrial fibrillation per patient and his sister. This is been ongoing, and with the onset of the cardiac symptoms, he has had some generalized fatigue and dizziness type symptoms. Yesterday at his primary care' s office, he apparently had a systolic in the 70s and was referred to the ER for stabilization. Because of some of these nonspecific symptoms, including tremulousness and episodic confusion, he did see Neurology as an outpatient and had an evaluation with Dr. Pappas who is no longer at [facility]. This included MRI, which showed age-appropriate atrophy without any hydrocephalus, mass lesions, or previous focal infarcts. He does not describe any seizures, hallucinations or focal motor or sensory symptoms. He does endorse having a very abnormal circadian pattern, typically staying up all night and sleeping in the daytime. 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 PAST MEDICAL, SOCIAL, FAMILY HISTORY/HOME MEDICATIONS/ALLERGIES: See Dr. Russell's H and P. PHYSICAL EXAMINATION: VITAL SIGNS: This morning: Blood pressure now is normalized beyond hypotension to 150s/100S, temperature is 36.4, heart rate 70s. NEUROLOGIC: Patient is awake and alert. No aphasia. His naming 5/5, following commands 5/5, repeating 5/5. No dysarthria. Cranial nerve exam 2 through 12 are normal. Motor exam is normal to strength, tone, reflexes. Sensory exam is normal. On coordination, he has some essential tremor in the upper extremities. Otherwise, no ataxia. IMPRESSION/PLAN: 1. Fatigue. 2. Cardiac disease. 3. Episodic confusion. Overall, it is unclear whether the patient is having neurologic manifestations of an underlying systemic disorder/cardiac disease or if there is a coexistent primary neurogenic process. At this point, he was admitted for stabilization of blood pressure. Going forward, we discussed plan at length, and the patient and his family would like to see [facility] to finish the evaluation started by their community neurologist here. I think this is reasonable. They will make that appointment and request records from Dr. Pappas's office. No further recommendations now. We will sign off and follow up as needed. Please do not hesitate to call if there are any questions or changes in neurologic status of the patient. 45 total minutes floor time reviewing previous MRI images from September of this year , current hospitalization records and labs, coordination of care, and direct counseling with the patient. /[id number]/MODL MTDD
[2018-01-29] MEDS: BUDESONIDE 180 MCG MDI IH SCH (10:45)
--- NOTE | 2018-01-29 14:28 | ECHO ---
[email or web address] [address] [address] Main: [phone] Fax: Transthoracic Echocardiogram Name: LUCINA HERRERA MR#: [id number] Study Date: 01/29/2018 Study Time: 12:56 PM Date of : 1950 Age: 67 year(s) Height: 175.3 cm (69 in.) Weight: 71.67 kg (158 lb.) BSA: 1.87 m2 Gender: Male Examination: Echo Indication: hx systolic CHF, near syncope Image Quality: Adequate Contrast: Requested by: Jack Russell BP: 137 mmHg/88 mmHg Heart Rate: Rhythm: Indication: hx systolic CHF, near syncope Procedure Staff Web Services Architect: Elif Booker [facility] Reading Physician: Tony Verde MD Requesting Provider: Conclusions: Normal size left ventricle. Borderline concentric LV hypertrophy. EF is 59 %. There is mild thickening of the mitral valve leaflets. Trivial mitral valve regurgitation. The aortic valve is tri-leaflet and functions normally. There is no aortic valve regurgitation. No aortic valve stenosis is present. Pulmonary artery pressure is not obtained due to inadequate TR jet. No old studies for comparison. Measurements: Chambers Valvular Assessment AV/MV Valvular Assessment TV/PV Normal Normal Normal Name Value Range Name Value Range Name Value Range Ao Lenora (MM): 3.5 cm (2.2 cm-3.7 AV Vmax: 1.14 m/s (1 m/s-1.7 PV Vmax: 0.78 m/s (0.6 m/s-0.9 cm) m/s) m/s) IVSd (2D): 0.9 cm (0.6 cm-1.1 AV maxP mmHg ( - ) PV PGmax: 2 mmHg ( - ) cm) LVOT Vmax: 0.73 m/s (0.7 m/s-1.1 LVDd (2D): 4.7 cm (4.2 cm-5.9 m/s) cm) MV E Vmax: 0.62 m/s ( - ) LVDs (2D): 3.2 cm (2.1 cm-4 MV A Vmax: 0.68 m/s ( - ) cm) MV E/A: 0.91 ( - ) LVPWd (2D): 1.1 cm (0.6 cm-1 cm) LVEF (BP): 59 % (>=55 %) RVDd(2D): 2.9 cm (1.9 cm-3.8 cmmm) Continued Measurements: Patient: LUCINA HERRERA Study Date: 01/29/2018 Page 1 of 2 12:56 PM Chambers Valvular Assessment AV/MV Name Value Name Value LADs Lon.2 cm MV DecTime: 151 m/s LA Area: 20.9 cm2 MV E/E' Septal: 11.60 LA Volume: 64 ml MV E/E' Lateral: 7.10 LA Volume Index: 34.2 ml/m2 RA Area: 12.3 cm2 Additional Vessels Name Value Ao Ascendin.0 cm Findings: Left Ventricle: Normal size left ventricle. Borderline concentric LV hypertrophy. Normal global systolic LV function. EF is 59 %. No regional wall motion abnormality. Normal diastolic LV function. Right Ventricle: Normal size right ventricle. Normal RV function. Left Atrium: The left atirum is borderline dilated. Right Atrium: The right atrium is normal in size. Mitral Valve: There is mild thickening of the mitral valve leaflets. Trivial mitral valve regurgitation. No mitral stenosis is present. Aortic Valve: The aortic valve is tri-leaflet and functions normally. There is no aortic valve regurgitation. No aortic valve stenosis is present. Tricuspid Valve: The tricuspid valve is normal in appearance and function. Trivial tricuspid valve regurgitation. Pulmonary artery pressure is not obtained due to inadequate TR jet. Pulmonic Valve: Pulmonary valve not well visualized. Aorta: Normal size aortic root measuring 3.5 cm. Normal size ascending aorta measuring 3.0 cm. IVC: The IVC is normal sized. Pericardium: No pericardial effusion. (No Signature Object) Patient: LUCINA HERRERA Study Date: 01/29/2018 Page 2 of 2 12:56 PM [id number]
--- NOTE | 2018-01-29 17:04 | GHP ---
DATE OF ADMISSION: 01/28/2018 CHIEF COMPLAINT: We have been asked by Dr. Russell to evaluate Mr. Gamboa with a chief complaint of atrial fibrillation and dizziness. HISTORY OF PRESENT ILLNESS: Mr. Gamboa is a 67-year-old gentleman with a history of hypertension and p aroxysmal atrial fibrillation who presents predominantly with symptoms of dizziness. The patient was in his usual state of health until August of this year when he noted the onset of generalized fatigue a nd lethargy. The patient also reported symptoms of mild dizziness at that time. He was subsequently diagnosed with atrial fibrillation and was ultimately treated with DC cardioversion in September of this year. Following DC cardioversion his symptoms of weakness and fatigue resolved. The patient did wel l until the day of admission, when he woke up and felt generally weak, he noted his blood pressure w as low on blood pressure cuff readings. By the afternoon he felt somewhat stronger and went into his primary care physician's office for a blood pressure check. During his blood pressure check he was n oted to have systolic blood pressure in the 70s and was referred to the emergency department for furt her evaluation. In the emergency department he was noted to have a normal blood pressure reading. T he patient continued to feel symptoms of dizziness, weakness and generalized confusion. He was admit deandre to the hospital for further evaluation. While in the hospital he was placed on bet taker ing. Telemetry monitoring demonstrated sinus rhythm, PVCs and occasional triplets. His blood pressu re has been within normal limits the whole time. His echocardiogram demonstrated normal left ventric ular size and systolic function with no significant valvular abnormalities. We were consulted to dena gallagher in the further management of this patient. PAST MEDICAL HISTORY: 1. Atrial fibrillation. 2. Hypertension. 3. Hyperlipidemia. 4. Asthma. MEDICATIONS: Please see medicine reconciliation form. ALLERGIES: 1. [place] seeds. 2. Penicillin. 3. Bee venom. SOCIAL HISTORY: Patient lives independently. 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 He does not smoke. FAMILY HISTORY: Notable for coronary artery disease at a later age onset. REVIEW OF SYSTEMS: A 10-point review of systems is negative, except as noted in HPI. PHYSICAL EXAMINATION: GENERAL: The patient is resting comfortably in his chair eating lunch. VITALS: Temperature is afebrile, pulse is 84, blood pressure 137/88, respiratory rate is 23, SaO2 is 93% on 1 L nasal cannula. HEENT: Normocephalic, atraumatic. Extraocular muscles intact. NECK: No JVD. No bruits. LUNGS: Clear to auscultation bilaterally. CARDIOVASCULAR: Regular rate and rhythm. S1, S2. No mu rmurs, rubs, or gallops appreciated. ABDOMEN: Obese, nontender. Normoactive bowel sounds. No hepa tosplenomegaly noted. EXTREMITIES: Trace bilateral lower extremity edema. SKIN: No evidence of rashes. NEURO: Patient is awake, alert, and oriented. Short-term memory appears to be intact. LABORATORY: White blood cell count is 7.78, hemoglobin is 11.7, hematocrit is 33.2, platelet count i s 131. Sodium 137, potassium 4.3, chloride 101, CO2 27, BUN 20, creatinine 0.8. Troponin within nor mal limits x3. D-dimer is mildly elevated at 0.6. Patient's EKG demonstrates sinus rhythm, normal a xis, normal intervals, no acute ST or T-wave changes. Echocardiogram demonstrates normal left ventri cular size and systolic function with no segmental wall motion abnormalities. ASSESSMENT AND PLAN: Mr. Gamboa is a 67-year-old gentleman with return: 1. Atrial fibrillation. The patient was recently diagnosed with paroxysmal atrial fibrillation in [facility] of this year. The patient is relatively asymptomatic with respect to his atrial fibrillation but does develop symptoms of generalized fatigue and weakness. He is status post DC cardioversion and i s currently maintaining a normal sinus rhythm. Would continue current therapy with Coreg and Eliquis . 2. Hypertension. The patient has a long history of hypertension. He has been managed with Coreg an d lisinopril. The patient may now have some autonomic insufficiency leading to labile blood pressure readings. Would favor leaving patient's blood pressure mildly elevated to reduce symptomatic hypote nsion. 3. Dizziness. Patient presents with a 1-day history of generalized weakness and dizziness. This wa s associated with low blood pressure readings in his primary care physician's office. However, sympt oms persisted in the emergency department with relatively normal blood pressure readings. The etiolo gy of his dizziness is not entirely clear at this time. Potential precipitants would be cardiac arrh ythmias, potentially a neurologic disorder, and also autonomic insufficiency. Would favor placement of a LINQ monitor to further evaluate his condition. There is no evidence of structural heart diseas e on echocardiogram. The patient reports recent stress testing was within normal limits. Will obtai n results for review. 4. Ventricular ectopy. The patient was noted to have premature ventricular contractions as well as triplets on telemetry monitoring. Echocardiogram demonstrates no significant structural heart diseas e. Recent stress testing is within normal limits per report. Will try to obtain most recent stress testing for review. If this is not recent or there are problems with stress testing, would consider repeat stress testing for risk stratification. Will also plan on implanting a LINQ recorder to [facility] evaluate for arrhythmias. /[id number]/MODL
--- NOTE | 2018-01-29 18:02 | HOSPPROG ---
Hospitalist Progress Note Assessment/Plan: 67 yo M with PMH of atrial fibrillation presented with multiple complaints including dizziness, gait instability and intermittent confusion that rather abruptly started. #Labile BP: Has been elevated here. Query whether there is a component of autonomic insufficiency. Alternatively this could be arrhythmia induced. - Cardiology consulted. Plan for LINQ placement in AM. Remain on telemetry - Discontinued lasix #Episodic confusion: Work up unremarkable thus far. Autonomic insufficiency has been associated with parkinsonian disorders (Shy-Drager syndrome). - Neurology consulted, they referred him to [facility] for neuropsychiatric testing - Reviewed brain MRI from 09/2017 that was grossly normal except for age- related atrophy #Gait instability: Neurologically intact. - PT, OT #Atrial fibrillation: Followed by Dr Michael. Underwent DCCV 10/2017. NSR here. - Continue eliquis, coreg #Ventricular ectopy: PVC and occasional triplet on telemetry. - LINQ as above #Asthma: Chronic. On 1-2L NC but I think this can be weaned. - Home inhalers #H/o HFrEF: LVEF normalized. He is on ACEi, BB which I'll continue. Diet: regular, NPO at midnight VTE ppx: therapeutic anticoagulation Code: full Dispo: Remain inpatient, unsafe for dishcarge home at this time. Plan for procedure in AM. Subjective: Overall feeling a bit better than on admission, able to walk whereas he wasn't able to yesterday. But still not back to baseline. Family notes a new tremor. No incontinence. Objective: Vital Signs Temp Pulse Resp BP Pulse Ox 36.8 C 81 19 151/95 H 95 01/29/18 15:00 01/29/18 15:00 01/29/18 15:00 01/29/18 15:00 01/29/18 15:00 Laboratory Results 01/29/18 04:36 01/29/18 04:36 01/28/18 01/29/18 01/30/18 05:59 05:59 05:59 Intake Total 1450 Output Total 60 111 Balance 1390 -111 - Physical Exam Constitutional: no apparent distress, appears nourished, not in pain Eyes: PERRL, anicteric sclera, EOMI Ears, Nose, Mouth, Throat: moist mucous membranes, hearing normal, ears appear normal, no oral mucosal ulcers Cardiovascular: regular rate and rhythym, no murmur, rub, or gallop Respiratory: no respiratory distress, no rales or rhonchi, clear to auscultation Gastrointestinal: normoactive bowel sounds, soft, non-tender abdomen, no palpable masses Skin: no rashes or abrasions, no fluctuance, no induration Neurologic: AAOx3, sensation intact bilaterally, CN II-XII Intact, other (no clonus or hyperreflexia), No weakness Psychiatric: interacting appropriately, not anxious, other (answers questions oddly at times), No depressed ICD10 Worksheet Patient Problems: Problems Problem Status Onset Dizziness Acute Hypotension Acute
--- NOTE | 2018-01-29 18:50 | PDMN ---
Medical Necessity Medical necessity: Change to IP, as of 01/29/18, per MD; los >2 mn for ongoing management of multiple complaints including; labile BP, ventricular ectopy, episodic confusion, gait instability & dizziness; pt unsafe for dc home; requiring further workup/monitoring, Cardiology consult w/LINQ placement & therapies; hx AFIB s/p CV, HTN, asthma
[2018-01-29] MEDS: MELATONIN 3 MG TAB PO PRN (21:09)
[2018-01-30] MEDS ORDERED: MELATONIN 3 MG TAB PO ONE (02:30)
[2018-01-30] MEDS: BUDESONIDE 180 MCG MDI IH SCH (08:07)
[2018-01-30] MEDS: CHOLECALCIFEROL VIT D3 1,000 UNITS TAB PO SCH (08:59)
[2018-01-30] MEDS: CARVEDILOL 25 MG TAB PO SCH ×2 (08:59→18:17)
[2018-01-30] MEDS: LISINOPRIL 10 MG TAB PO SCH (08:59)
[2018-01-30] MEDS: APIXABAN 5 MG TAB PO SCH ×2 (08:59→20:57)
[2018-01-30] MEDS: ATORVASTATIN CALCIUM 20 MG TAB PO SCH (08:59)
[2018-01-30] MEDS ORDERED: LIDOCAINE 1% 300 MG/30 ML SDV SC ONE (10:02)
--- NOTE | 2018-01-30 10:23 | ASMTCMCOM ---
CM Note CM Note Notes: Met briefly with patient his sister and daughter prior to him going for loop recorder. He is interested in SNF rehab and would prefer [facility]. Referrals placed in allscripts. CM to follow. Plan: To SNF when medically ready for discharge. Date Signed: 01/30/2018 10:23 AM Electronically Signed By:Edna Stephen RN
--- NOTE | 2018-01-30 11:39 | CPIP ---
INDICATION: The patient is 67 years old. He has a history of paroxysmal atrial fibrillation, curren tly in sinus rhythm, benign PVCs, and recently has developed symptoms of episodic dizziness. He is r eferred for implantation of a LINQ to evaluate for further recurrence of arrhythmias that might be co ntributing to symptoms of dizziness. PROCEDURE: Implantation of Medtronic LINQ. TECHNIQUE: Following informed consent, the patient was brought to the [facility] in a fasting state. Prior to the procedure, the 4th intercostal space was marked. The patient was prepped and draped in usual sterile fashion. 2% lidocaine was infiltrated in the skin near the existing feng. A 1 cm incision was made. At this point the Medtronic LINQ was then injected underneath the skin. The wound was the n closed with 2 justin. The device was interrogated with excellent sensing. A dry dressing was the n applied. COMPLICATIONS: None. DISPOSITION: The patient will be recovered in the CVC today. It is likely that he will be discharge d home within the next 24 hours. /[id number]/MODL
--- NOTE | 2018-01-30 12:02 | ASMTCMCOM ---
CM Note CM Note Notes: Revisited with patient and his daughter. They choose to go to [facility] and the patient should discharge tomorrow. CM available should other needs arise. Plan; To [facility] when medically cleared for discharge. Date Signed: 01/30/2018 12:02 PM Electronically Signed By:Edna Stephen RN
--- NOTE | 2018-01-30 15:50 | HOSPPROG ---
Hospitalist Progress Note Assessment/Plan: 67 yo M with PMH of atrial fibrillation presented with multiple complaints including dizziness, gait instability and intermittent confusion that rather abruptly started. #Gait instability: No clear insult. Neuro intact. - PT/OT recommending SNF #Labile BP, episodic dizziness: None here. Likely dehydration vs autonomic insufficiency or arrhythmia. Stopped lasix - LINQ placed today by cardiology #Episodic confusion: Work up unrevealing, including recent MRI. Neuro referred to [facility] for neuropsych testing #Atrial fibrillation: Followed by Dr Michael. Underwent DCCV 10/2017. NSR here. Continue eliquis, coreg. #Ventricular ectopy: PVC and occasional couplets. Getting LINQ as above. #Asthma: Chronic. On room air, no exacerbation. Home inhalers. #H/o HFrEF: LVEF normalized. He is on ACEi, BB which I'll continue. Diet: regular VTE ppx: therapeutic anticoagulation Code: full Dispo: Remain inpatient, unsafe for discharge home at this time. Hopefully to SNF tomorrow. Subjective: Feeling well this afternoon.No dizziness or presyncopal symptoms while walking several times today. No hypotension. Tele with PVCs, few couplets. LINQ placed this AM. Objective: Vital Signs Temp Pulse Resp BP Pulse Ox 36.6 C 88 18 158/95 H 93 01/30/18 11:54 01/30/18 12:53 01/30/18 12:53 01/30/18 12:53 01/30/18 12:53 Laboratory Results 01/30/18 04:54 01/30/18 04:54 - Physical Exam Constitutional: no apparent distress, appears nourished, not in pain Eyes: PERRL, anicteric sclera, EOMI Ears, Nose, Mouth, Throat: moist mucous membranes, hearing normal, ears appear normal, no oral mucosal ulcers Cardiovascular: regular rate and rhythym, no murmur, rub, or gallop Respiratory: no respiratory distress, no rales or rhonchi, clear to auscultation Gastrointestinal: normoactive bowel sounds, soft, non-tender abdomen, no palpable masses Genitourinary: no bladder fullness, no bladder tenderness, no renal bruits Skin: no rashes or abrasions, no fluctuance, no induration Musculoskeletal: full muscle strength, no muscle tenderness, normal joint ROM Neurologic: AAOx3, sensation intact bilaterally Psychiatric: interacting appropriately, not anxious, not encephalopathic, thought process linear ICD10 Worksheet Patient Problems: Problems Problem Status Onset Dizziness Acute Hypotension Acute
[2018-01-30] MEDS: ACETAMINOPHEN 325 MG TAB PO PRN ×2 (16:38→20:57)
[2018-01-30] MEDS: MELATONIN 3 MG TAB PO PRN (20:57)
[2018-01-31] MEDS: CARVEDILOL 25 MG TAB PO SCH ×2 (08:11→17:39)
[2018-01-31] MEDS: APIXABAN 5 MG TAB PO SCH ×2 (08:12→21:00)
[2018-01-31] MEDS: ATORVASTATIN CALCIUM 20 MG TAB PO SCH (08:12)
[2018-01-31] MEDS: LISINOPRIL 10 MG TAB PO SCH (08:12)
[2018-01-31] MEDS: CHOLECALCIFEROL VIT D3 1,000 UNITS TAB PO SCH (08:12)
[2018-01-31] MEDS: BUDESONIDE 180 MCG MDI IH SCH (08:21)
[2018-01-31] MEDS ORDERED: PNEUMOC 13-VAL CONJ-DIP CRM/PF 0.5 ML SYR IM ONE (10:38)
--- NOTE | 2018-01-31 13:15 | HOSPPROG ---
Hospitalist Progress Note Assessment/Plan: 67 yo M with PMH of atrial fibrillation presented with multiple complaints including dizziness, gait instability and intermittent confusion that rather abruptly started. Gait instability: No clear insult. Neuro intact. - PT/OT recommending SNF could be parkinsonism anemia: mild but new describes black vomit in er, none since has had colonoscopy unclear, if any, contribution to current presentation outpt follow up Labile BP, episodic dizziness: None here. Likely dehydration vs autonomic insufficiency or arrhythmia. Stopped lasix - LINQ placed today by cardiology Episodic confusion: Work up unrevealing, including recent MRI. Neuro referred to [facility] for neuropsych testing Atrial fibrillation: Followed by Dr Michael. Underwent DCCV 10/2017. NSR here. Continue eliquis, coreg. Ventricular ectopy: PVC and occasional couplets. Getting LINQ as above. Asthma: Chronic. On room air, no exacerbation. Home inhalers. H/o HFrEF: LVEF normalized. He is on ACEi, BB which I'll continue. Diet: regular VTE ppx: therapeutic anticoagulation dispo: to snf today > 30 m inutes on dc Subjective: no events tele (interp by me) Objective: Vital Signs Temp Pulse Resp BP Pulse Ox 36.7 C 77 22 H 157/100 H 92 01/31/18 12:12 01/31/18 12:12 01/31/18 12:12 01/31/18 12:12 01/31/18 12:12 Laboratory Results 01/30/18 04:54 01/30/18 04:54 01/30/18 01/31/18 02/01/18 05:59 05:59 05:59 Intake Total 500 Output Total 450 Balance 50 - Physical Exam Constitutional: no apparent distress, appears nourished Eyes: PERRL, anicteric sclera Ears, Nose, Mouth, Throat: moist mucous membranes, hearing normal Cardiovascular: regular rate and rhythym, no murmur, rub, or gallop, No systolic murmur Respiratory: no respiratory distress, no rales or rhonchi Gastrointestinal: normoactive bowel sounds, soft, non-tender abdomen Genitourinary: No sher in urethra Skin: warm, normal color Musculoskeletal: No full muscle strength Neurologic: AAOx3 ICD10 Worksheet Patient Problems: Problems Problem Status Onset Dizziness Acute Hypotension Acute
--- NOTE | 2018-01-31 13:17 | PDIAF ---
- Diagnosis Diagnosis: weakness Code Status: Full Code - Medication Management Discharge Medications: Medications to Continue on Transfer Albuterol [Proventil Inhaler HFA (*)] 1 - 2 puffs IH Q4H PRN 01/28/18 [Last Taken 01/27/18] Apixaban [Eliquis] 5 mg PO BID 01/28/18 [Last Taken 01/28/18 11:00] Budesonide 180 Mcg INH [Pulmicort 180Mcg Flexhaler (*)] 1 puffs IH DAILY [Last Taken 01/28/18] Carvedilol [Coreg (*)] 25 mg PO BIDMEAL 01/28/18 [Last Taken 01/28/18 11:00] Cholecalciferol Vit D3 [Vitamin D3 (*)] 2,000 units PO DAILY 01/28/18 [Last Taken 01/28/18] Lisinopril [Zestril 10 mg (*)] 10 mg PO DAILY 01/28/18 [Last Taken 01/28/18 11: 00] Simvastatin [Zocor] 40 mg PO HS 01/28/18 [Last Taken 01/27/18] Discharge Medications: Refer to the Discharge Home Medication list for PRN reason. - Orders Services needed: Registered Nurse, Certified Buggyman, Physical Therapy, Occupational Therapy, Speech Language Pathologist Diet Recommendation: no restrictions on diet Diet Texture: Regular Texture Diet - Labs/Radiology CBC w/diff Date: 02/02/18 (hct 30 on dc) - Follow Up Care Current Providers and Referrals: Ventura Spencer MD [Primary Care Provider] - As per Instructions
--- NOTE | 2018-01-31 13:55 | GDS ---
GENERAL DISCHARGE SUMMARY DISCHARGE DIAGNOSES: 1. Atrial fibrillation, on anticoagulation. 2. New mild anemia. 3. Gait instability with orthostasis. 4. Weakness. Please see admission history and physical by Dr. Jack Russell. The patient presented with weakness as well as dizziness and low blood pressure that were seen in his [facility] PCPs office. He was euvolemic on presentation, although he does take a diuretic as an outpatient. He had negative troponins. He was followed on telemetry without significant event, and LINQ monitor was placed given frequent PVCs. He has not had syncope. He had an echocardiogram that was normal. He was also seen by Neurology, who reviewed an MRI done earlier in the summer that was normal. There was some discussion that possibly the patient has parkinsonism, given the constellation of memory lapses, gait issues, and weakness. When I spoke with the patient, he was alert and oriented and without memory deficit. He was noted to have a baseline hemoglobin that was normal and had fallen to about 10. He did an episode of black vomit, but otherwise was without evidence of ongoing bleeding here. I recommend that he follow up as an outpatient. He is being discharged to [facility] for rehabilitation. I recommend he follow up with an outpatient neurologist. ADDENDUM: 02/01/2018: The patient did not leave because he required a third midnight, which was accomplished last night (01/31/2018). He is leaving today ( 02/01/2018). /[id number]/MODL and [id number]/MODL MTDD
--- NOTE | 2018-01-31 16:09 | ASMTCMCOM ---
CM Note CM Note Notes: CM spoke with hospitalist, Dr Connors, pt and pt's .. Pt ready for d/c tomorrow to [facility]. D/C Plan: [facility] Date Signed: 01/31/2018 04:08 PM Electronically Signed By:Mini Curran
[2018-01-31] MEDS: ACETAMINOPHEN 325 MG TAB PO PRN (17:41)
[2018-01-31] MEDS: MELATONIN 3 MG TAB PO PRN (21:00)
[2018-02-01 07:37] VITALS: BP 151/92
[2018-02-01] MEDS: ATORVASTATIN CALCIUM 20 MG TAB PO SCH (07:46)
[2018-02-01] MEDS: LISINOPRIL 10 MG TAB PO SCH (07:46)
[2018-02-01] MEDS: APIXABAN 5 MG TAB PO SCH (07:47)
[2018-02-01] MEDS: CARVEDILOL 25 MG TAB PO SCH (07:47)
[2018-02-01] MEDS: CHOLECALCIFEROL VIT D3 1,000 UNITS TAB PO SCH (07:47)
[2018-02-01] MEDS: BUDESONIDE 180 MCG MDI IH SCH (07:48)
--- NOTE | 2018-02-01 09:25 | ASMTCMCOM ---
CM Note CM Note Notes: Medically cleared for discharge to [facility]. Final orders via allscripts. Family to transport. CM available should other needs arise. Plan: To [facility] SNF Date Signed: 02/01/2018 09:24 AM Electronically Signed By:Edna Stephen RN
--- NOTE | 2018-02-01 10:15 | HOSPPROG ---
Hospitalist Progress Note Assessment/Plan: 67 yo M with PMH of atrial fibrillation presented with multiple complaints including dizziness, gait instability and intermittent confusion that rather abruptly started. Gait instability: No clear insult. Neuro intact. - PT/OT recommending SNF could be parkinsonism anemia: mild but new describes black vomit in er, none since has had colonoscopy unclear, if any, contribution to current presentation outpt follow up Labile BP, episodic dizziness: None here. Likely dehydration vs autonomic insufficiency or arrhythmia. Stopped lasix - LINQ placed today by cardiology Episodic confusion: Work up unrevealing, including recent MRI. Neuro referred to [facility] for neuropsych testing Atrial fibrillation: Followed by Dr Michael. Underwent DCCV 10/2017. NSR here. Continue eliquis, coreg. Ventricular ectopy: PVC and occasional couplets. Getting LINQ as above. Asthma: Chronic. On room air, no exacerbation. Home inhalers. H/o HFrEF: LVEF normalized. He is on ACEi, BB which I'll continue. Diet: regular VTE ppx: therapeutic anticoagulation dispo: to snf today > 30 minutes on dc Subjective: headed to rehab today Objective: Vital Signs Temp Pulse Resp BP Pulse Ox 36.4 C 79 16 151/92 H 93 02/01/18 07:34 02/01/18 07:47 02/01/18 07:34 02/01/18 07:47 02/01/18 07:34 Laboratory Results 01/30/18 04:54 01/30/18 04:54 01/31/18 02/01/18 02/02/18 05:59 05:59 05:59 Intake Total 500 Output Total 450 750 Balance 50 -750 - Physical Exam Constitutional: no apparent distress, appears nourished Eyes: PERRL, anicteric sclera Ears, Nose, Mouth, Throat: moist mucous membranes, hearing normal Cardiovascular: regular rate and rhythym, no murmur, rub, or gallop Respiratory: no respiratory distress, no rales or rhonchi Gastrointestinal: normoactive bowel sounds, soft, non-tender abdomen Genitourinary: no bladder fullness, No sher in urethra Skin: warm, normal color Musculoskeletal: full muscle strength Neurologic: AAOx3 Psychiatric: interacting appropriately ICD10 Worksheet Patient Problems: Problems Problem Status Onset Dizziness Acute Hypotension Acute
== END 2018-02-01 11:28 | DRG 259 ==
LOC: EDUNIT# → F1N 21:20 → OBSVTOIN 01-29 17:00
PROVIDERS: ADMIT Internal Medicine; ATTEND Internal Medicine
PROC: 0JH60PZ Insertion of Cardiac Rhythm Related Device into Chest Subcutaneous Tissue and Fascia, Open Approach (ICD-10-PCS; principal; 2018-01-30)
DX: I49.3 Ventricular premature depolarization (principal); I95.1 Orthostatic hypotension; I48.0 Paroxysmal atrial fibrillation; D64.9 Anemia, unspecified; R26.89 Other abnormalities of gait and mobility; I10 Essential (primary) hypertension; E78.5 Hyperlipidemia, unspecified; J45.909 Unspecified asthma, uncomplicated; Z23 Encounter for immunization
CPT/HCPCS: 82607-90; 84484-PO; 96374; 97110-GP; 97116-GP; 97161-GP; 97165-GO; 97530-GO; 97535-GO; C1764; G0008; G0009; G0378; G8978-GP-CK; G8979-GP-CJ; G8987-GO-CI; G8988-GO-CH; J2405

== ENCOUNTER 2018-03-16 21:00 | Observation (INO) | payer OTHER ==
--- NOTE | 2018-03-16 21:32 | EDPHY ---
General Time Seen by Provider: 03/16/18 21:25 Narrative: CHIEF COMPLAINT: Fall, head injury HISTORY OF PRESENT ILLNESS: Patient presents to emergency depart with complaints of fall and head laceration. He is accompanied by his neighbors. Patient states that he was drinking alcohol this evening, stood up too fast and tripped and fell. He says that he hit his head on the ground and thinks that is glasses caused a in injury to his eyelid and forehead. His neighbor said that they do not think he lost consciousness. He is complaining of a mild headache. He has no chest, back, neck or abdominal pain. No numbness or tingling. No weakness. He was somewhat nauseated earlier. He does take Eliquis for atrial fibrillation. He does have an implanted monitor. He has no other associated complaints or modifying factors. REVIEW OF SYSTEMS: 10 systems were reviewed and negative with the exception of the elements mentioned in the history of present illness. PCP: Unknown SPECIALISTS: Cardiology PAST MEDICAL HISTORY: Atrial fibrillation, pulmonary hypertension, dyslipidemia, nonischemic cardiomyopathy, recurrent falls PAST SURGICAL HISTORY: No recent surgical history SOCIAL HISTORY: Nonsmoker. Lives independently. Drinks alcohol daily. 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 No Aldrich sign. No raccoon eyes. There are superficial lacerations to the right forehead eyelid. Eyes: Pupils equal and round, no conjunctival pallor or injection. EOM symmetric. No diplopia with inferior rectus ENT, Mouth: Mucous membranes moist. Airway patent. Neck: Normal inspection, supple, non-tender. No crepitus or deformity. Respiratory: Lungs are clear to auscultation Cardiovascular: Regular rate and rhythm no murmur Gastrointestinal: Abdomen is soft and nontender Back: non-tender, no bony abnormalities Neurological: Cranial nerves 2-12 grossly intact. A&O, nonfocal, strength is symmetric in all 4 limbs. Skin: Warm and dry, no rash. The lacerations to the face but the forces on the right forehead, 1.5 cm superficial without foreign body. Second 1 is on the right eyelid, medially and superiorly. 1.5 cm superficial without foreign body. No exposure of the tarsal plate. The 3rd laceration is on the right inferior lateral portion of the eyelid. 3 cm superficial no foreign body. No injury to the tarsal plate. None of these lacerations communicate with the can thigh. Extremities: Nontender, no pedal edema. Symmetric range of motion. Psychiatric: Mood and affect normal DIFFERENTIAL DIAGNOSES: Including but not limited to intracranial hemorrhage, concussion, dehydration, acute kidney injury, alcoholism, alcohol intoxication, lacerations MDM: 9:35 p.m. Reported mechanical fall with closed head injury, right eyebrow laceration in a patient does take Eliquis. He does have a mild odor of alcohol about him but is conversing appropriately without slurred speech. His neuro exam is well within normal limits. He does have a laceration of the right eyebrow, thus I have ordered CT scan of the head. He will need laceration repair as well. I have ordered laboratory studies, EKG. He is awake and alert. No acute distress , but he is mildly hypoxic on room air. 10:30 p.m. Laboratory studies reveal mild pre renal azotemia with elevation of his creatinine since January. He also has mild hypomagnesemia. I have ordered IV fluid, IV magnesium. 10:45 p.m. Lacerations have been closed without difficulty. CT scans pending. He remains mildly hypoxemic on room air. 10:55 p.m. Notified by radiologist Dr. Mcdaniel. CT scan head shows chronic changes but nothing acute. CT cervical spine reveals age indeterminate fracture of C7-T1. No evidence to suggest acute fracture but no previous comparison. I have re- evaluated the patient confirm he has no neck pain of any kind. He has no numbness, tingling or weakness of the extremities. He has no saddle anesthesia. He reports no incontinence of bowel or bladder. He is not aware of any previous cervical fractures however. 11:05 p.m. I have discussed case with both Dr. Rivera and the hospitalist Dr. Cotto. They will both evaluate the patient emergency department. He will be admitted for hypoxemia, acute alcohol intoxication with fall and age indeterminate cervical spine fracture, neuro intact. PROCEDURE: Laceration repair, 1. Consent: Verbal Location: right forehead Length of repair: 1.5 Complexity: Simple Layer involvement: Single Anesthesia: Local. 0.25% Marcaine with epinephrine, 3 mL Irrigation: Extensive Debridement: None Procedure description: Following good anesthesia, the wound was copiously irrigated. Wound bed was explored with a sterile glove, and there is no foreign body noted. No injury to the underlying fascia or temporalis muscle. Wound borders were approximated well with good hemostasis. Tolerated well without complication. Suture/Staple material: 5-0 Prolene, 2 simple ruptured sutures Wound care: Routine as discussed Suture/Staple removal: 5-7 Days PROCEDURE: Laceration repair, 2. Consent: Verbal Location: Right eyelid, medial and superior Length of repair: 1.5 cm Complexity: Complex due to location Layer involvement: Single Anesthesia: Local. 0.25% Marcaine with epinephrine, 2 mL Irrigation: Extensive Debridement: None Procedure description: Following good anesthesia, the wound was copiously irrigated. Wound bed was explored with a sterile glove, and there is no foreign body noted. No injury to the tarsal plate. Wound borders were approximated well with good hemostasis. Tolerated well without complication. Suture/Staple material: 5-0 Prolene, 2 simple ruptured sutures Wound care: Routine as discussed Suture/Staple removal: 5-7 Days. PROCEDURE: Laceration repair, 3. Consent: Verbal Location: Right eyelid, lateral and inferior Length of repair: 3 cm Complexity: Complex Layer involvement: Local Anesthesia: 0.25% Marcaine with epinephrine, 3 mL Irrigation: Extensive Debridement: None Procedure description: Following good anesthesia, the wound was copiously irrigated. Wound bed was explored with a sterile glove, and there is no foreign body noted. No injury to the tarsal plate Wound borders were approximated well with good hemostasis. Tolerated well without complication. Suture/Staple material: 5-0 Prolene, 4 simple ruptured sutures Wound care: Routine as discussed Suture/Staple removal: 5-7 Days SUPERVISION: Patient was independently examined, but I discussed the case with my secondary supervising physician Dr. Luna CONSULTATION: Trauma surgeon, Dr. Rivera Hospitalist, Dr. Stinson - History Smoking Status: Never smoked - Objective Vital Signs: Initial Vital Signs Temperature (C) 97.5 F 03/16/18 21:01 Heart Rate 87 03/16/18 21:01 Respiratory Rate 16 03/16/18 21:01 Blood Pressure 85/43 L 03/16/18 21:01 O2 Sat (%) 94 03/16/18 21:01 O2 Delivery Mode Room Air Allergies/Adverse Reactions: sunflower seed Allergy (Severe, Verified 10/05/18 21:02) Anaphylaxis Penicillins Allergy (Intermediate, Verified 11/04/17 19:37) Rash bee venom protein (honey bee) Allergy (Verified 11/04/17 19:37) Home Medications: Medication Instructions Recorded Albuterol [Proventil Inhaler HFA 1 - 2 puffs IH Q4H PRN 01/28/18 (*)] Apixaban [Eliquis] 5 mg PO BID 01/28/18 Budesonide 180 Mcg INH [Pulmicort 1 puffs IH DAILY 01/28/18 180Mcg Flexhaler (*)] Carvedilol [Coreg (*)] 25 mg PO BIDMEAL 01/28/18 Cholecalciferol Vit D3 [Vitamin D3 2,000 units PO DAILY 01/28/18 (*)] Lisinopril [Zestril 10 mg (*)] 10 mg PO DAILY 01/28/18 Simvastatin [Zocor] 40 mg PO HS 01/28/18 Lasix 03/16/18 Potassium Chloride Po 03/16/18 hydrALAZINE 03/16/18 Departure - Departure Disposition: [facility] Inpatient Acute Clinical Impression: Recurrent falls, Hypoxemia C7 cervical fracture Qualifiers: Encounter type: initial encounter Fracture type: closed Fracture morphology: unspecified fracture morphology Fracture alignment: nondisplaced Qualified Code( s): S12.601A - Unspecified nondisplaced fracture of seventh cervical vertebra, initial encounter for closed fracture Facial laceration Qualifiers: Encounter type: initial encounter Qualified Code(s): S01.81XA - Laceration without foreign body of other part of head, initial encounter Condition: Good Referrals: Ventura Spencer MD [Primary Care Provider] - As per Instructions
[2018-03-16 22:01] LABS: PLATELET COUNT 181 10^3/uL (150-400)
[2018-03-16] MEDS ORDERED: NS 1,000 ML IV ONE (22:20)
[2018-03-16] MEDS ORDERED: MAGNESIUM SULF 1 GM/DEXTROSE 100 ML IV ONE (22:20)
[2018-03-16] MEDS ORDERED: ACETAMINOPHEN 325 MG TAB PO PRN (23:11)
[2018-03-16] MEDS ORDERED: ONDANSETRON 4 MG/2 ML VIAL IVP PRN (23:11)
[2018-03-16] MEDS ORDERED: ALBUTEROL 3 ML DEYVIAL IH PRN (23:11)
[2018-03-16] MEDS ORDERED: ONDANSETRON DISINTEGRATING 4 MG TAB PO PRN (23:11)
[2018-03-17] MEDS ORDERED: FLUMAZENIL 0.5 MG/5 ML MDV IVP PRN (00:26)
[2018-03-17] MEDS ORDERED: MAG HYDROX/AL HYDROX/SIMETH 30 ML UDCUP PO PRN (00:26)
[2018-03-17] MEDS ORDERED: LORazepam 2 MG/ML INJ IVP PRN (00:29)
--- NOTE | 2018-03-17 01:02 | PDHOSCONS ---
History and Physical - Chief Complaint Fall - History of Present Illness 67 yo M w/ hx of AF, asthma, and HTN presents after a fall. The patient has been dealing with balance issues and falls for much of this year. He was admitted here earlier this month with low blood pressure and gait instability. The etiology of this has been so far unclear. His work-up during recent admission included neurology evaluation. He had a brain MRI earlier this year that was unremarkable. A TTE performed last admission was also relatively normal. Today he had 6 shots of bourbon and then tripped and fell. He hit his R eye and has a laceration, which was repaired in the ED. CT in the ED revealed C and T spine fracture of indeterminate age. He also became mildly hypoxic after vomiting and is noted to have a mild BUSHRA. He is being admitted to the trauma service with a hospitalist consult. Of note, he tells me he drinks about 6 shots of bourbon daily. I do not see this mentioned during previous discussions about his gait instability. He denies history of alcohol withdrawal. Case discussed with trauma surgeon Dr. Rivera; records reviewed and summarized above. History Information - Allergies/Home Medication List Allergies/Adverse Reactions: sunflower seed Allergy (Severe, Verified 01/30/18 21:02) Anaphylaxis Penicillins Allergy (Intermediate, Verified 11/04/17 19:37) Rash bee venom protein (honey bee) Allergy (Verified 11/04/17 19:37) Home Medications: Albuterol [Proventil Inhaler HFA (*)] 1 - 2 puffs IH Q4H PRN 01/28/18 [Last Taken 01/27/18] Apixaban [Eliquis] 5 mg PO BID 01/28/18 [Last Taken 01/28/18 11:00] Budesonide 180 Mcg INH [Pulmicort 180Mcg Flexhaler (*)] 1 puffs IH DAILY [Last Taken 01/28/18] Carvedilol [Coreg (*)] 25 mg PO BIDMEAL 01/28/18 [Last Taken 01/28/18 11:00] Cholecalciferol Vit D3 [Vitamin D3 (*)] 2,000 units PO DAILY 01/28/18 [Last Taken 01/28/18] Lisinopril [Zestril 10 mg (*)] 10 mg PO DAILY 01/28/18 [Last Taken 01/28/18 11: 00] Simvastatin [Zocor] 40 mg PO HS 01/28/18 [Last Taken 01/27/18] Lasix 03/16/18 [Last Taken Unknown] Potassium Chloride Po 03/16/18 [Last Taken Unknown] hydrALAZINE 03/16/18 [Last Taken Unknown] I have personally reviewed and updated: family history, medical history - Past Medical History atrial fibrillation (sp CV), asthma, hypertension, hyperlipidemia - Surgical History Reports: no pertinent surgical hx Additional surgical history: LINQ monitor - Family History Positive for: CAD - Social History Smoking Status: Never smoked Additional social history: lives alone, daughter accompanies him here Review of Systems Review of Systems: ROS: 10pt was reviewed & negative except for what was stated in HPI & below Physical Exam Physical Exam: Temp Pulse Resp BP Pulse Ox 36.4 C 108 H 18 96/75 L 94 03/16/18 21:01 03/16/18 23:42 03/16/18 23:42 03/16/18 23:42 03/16/18 23:42 O2 (L/minute) 4 Constitutional: not in pain, unkempt, other (C-collar in place) Eyes: PERRL, EOMI, other (R eyebrow laceration, ecchymosis) Ears, Nose, Mouth, Throat: moist mucous membranes, no oral mucosal ulcers Cardiovascular: regular rate and rhythym, systolic murmur Respiratory: no respiratory distress, clear to auscultation Gastrointestinal: normoactive bowel sounds, soft, non-tender abdomen Skin: warm, normal color Musculoskeletal: full muscle strength, no muscle tenderness Neurologic: AAOx3, CN II-XII Intact Psychiatric: interacting appropriately, not anxious Lab Data & Imaging Review 03/16/18 21:40 03/16/18 23:47 WBC 5.54 10^3/uL (3.80-9.50) 03/16/18 21:40 RBC 3.62 10^6/uL (4.40-6.38) L 03/16/18 21:40 Hgb 12.2 g/dL (13.7-17.5) L 03/16/18 21:40 Hct 35.1 % (40.0-51.0) L 03/16/18 21:40 MCV 97.0 fL (81.5-99.8) 03/16/18 21:40 MCH 33.7 pg (27.9-34.1) 03/16/18 21:40 MCHC 34.8 g/dL (32.4-36.7) 03/16/18 21:40 RDW 14.9 % (11.5-15.2) 03/16/18 21:40 Plt Count 181 10^3/uL (150-400) 03/16/18 21:40 MPV 9.4 fL (8.7-11.7) 03/16/18 21:40 Neut % (Auto) 71.3 % (39.3-74.2) 03/16/18 21:40 Lymph % (Auto) 16.4 % (15.0-45.0) 03/16/18 21:40 [place] % (Auto) 9.9 % (4.5-13.0) 03/16/18 21:40 Eos % (Auto) 1.3 % (0.6-7.6) 03/16/18 21:40 Baso % (Auto) 0.9 % (0.3-1.7) 03/16/18 21:40 Nucleat RBC Rel Count 0.0 % (0.0-0.2) 03/16/18 21:40 Absolute Neuts (auto) 3.95 10^3/uL (1.70-6.50) 03/16/18 21:40 Absolute Lymphs (auto) 0.91 10^3/uL (1.00-3.00) L 03/16/18 21:40 Absolute Monos (auto) 0.55 10^3/uL (0.30-0.80) 03/16/18 21:40 Absolute Eos (auto) 0.07 10^3/uL (0.03-0.40) 03/16/18 21:40 Absolute Basos (auto) 0.05 10^3/uL (0.02-0.10) 03/16/18 21:40 Absolute Nucleated RBC 0.00 10^3/uL (0-0.01) 03/16/18 21:40 Immature Gran % 0.2 % (0.0-1.1) 03/16/18 21:40 Immature Gran # 0.01 10^3/uL (0.00-0.10) 03/16/18 21:40 Sodium 135 mEq/L (135-145) 03/16/18 23:47 Potassium 3.9 mEq/L (3.3-5.0) 03/16/18 23:47 Chloride 93 mEq/L (97-110) L 03/16/18 23:47 Carbon Dioxide 29 mEq/l (22-31) 03/16/18 23:47 Anion Gap 13 mEq/L (6-14) 03/16/18 23:47 BUN 23 mg/dL (7-23) 03/16/18 23:47 Creatinine 1.4 mg/dL (0.7-1.3) H 03/16/18 23:47 Estimated GFR 51 03/16/18 23:47 Glucose 116 mg/dL (70-100) H 03/16/18 23:47 Calcium 9.7 mg/dL (8.5-10.4) 03/16/18 23:47 Magnesium 1.3 mg/dL (1.6-2.3) L 03/16/18 21:40 POC Troponin I 0.01 ng/mL (0.00-0.08) 03/16/18 21:53 Ethyl Alcohol 236 mg/dL (0-10) H 03/16/18 21:40 Imaging Review: Imaging Impressions Cervical Spine CT 03/16/18 21:38 Impression: 1. Motion limited study with age-indeterminate mild C7 and T3 and minimal T2 compression fractures. If there is persistent pain or neurologic deficit, consider MRI if clinically indicated. 2. Additional findings as above. Findings discussed with Jake Camacho 03/16/2018 at 22:46. Head CT 03/16/18 21:38 Impression: 1. No acute intracranial findings. 2. Diffuse cerebral atrophy with periventricular and subcortical low attenuation consistent with chronic microvascular ischemic gliosis. Findings discussed with Jake Camacho 03/16/2018 at 22:46. Chest X-Ray 03/16/18 22:43 Impression: No acute findings in the chest. Visualized and Interpreted EKG results: Yes EKG Interpretation: Positive for: normal sinsus rhythm Assessment & Plan Assessment: 67 yo M w/ AF, HTN, asthma, and recent history of gait instability presents with a fall. Plan: 1. Fall - Mechanical fall suffered after drinking 6 shots of bourbon. CTH ( personally reviewed/interpreted) without acute abnormality. He has suffered several falls this year but none since being released from rehab about 1 month ago. He suffered a R facial laceration during the fall. - Trauma surgery primary to eval - PT/OT evaluations 2. Gait instability - This has been noted for a large part of this year. Some of this has been attributed to orthostatic hypotension and possible Parkinsonism , but an etiology has not been entirely clear. Of note, the patient tells me he drinks 6 shots of bourbon daily, which is likely contributing. Recent MRI and TTE have been unremarkable. - High dose thiamine protocol noting ETOH history - PT/OT evaluations 3. C7, T3, and minimal T2 compression fractures - Noted on initial trauma evaluation. The patient denies symptoms at this time. - C-collar in place - Trauma evaluation pending - Will need osteoporosis evaluation as an outpatient - Will check Vitamin D 4. AHRF - Likely multifactorial from aspiration (witnessed in ED), atelectasis, and sedation from ETOH. - O2 PRN to maintain sats>90% - Incentive spirometry ordered 5. Asthma - Continue home medications pending reconciliation 6. HTN - Monitor BP, restart home medications if indicated 7. AF - Hold Eliquis pending trauma evaluation Thank you for this consult, the hospital medicine service will follow along with you
[2018-03-17] MEDS: NS 1,000 ML IV SCH ×2 (01:27→12:38)
[2018-03-17] MEDS: THIAMINE HCL 500 MG in NS 100 ML IV SCH (01:27)
--- NOTE | 2018-03-17 01:57 | GHP ---
DATE OF ADMISSION: 03/16/2018 ADMITTING DIAGNOSES: 1. Alcohol intoxication. 2. Fall. 3. C7, T2, and T3 mild compression fractures. 4. Hypoxia. 5. Atrial fibrillation, on an anticoagulant. HISTORY: The patient is a 67-year-old male who was in his house. He had been sipping bourbon tonight. He got up from the bedroom to go into the bathroom and slipped and hit his head on the tile floor. there was no loss of consciousness. He was brought to [facility]. Note is made that he developed atrial fibrillation in September of this year and did undergo cardioversion. He has been placed on Eliquis and has an implanted cardiac recording monitor. He has had balance issues since June but has fallen only once, and that was when he was getting out of a car too quickly. When he feels unstable he is aware of it and makes a point not to get up and move around. He is not a smoker. He denies any allergies. MEDICATIONS: Include albuterol 1-2 puffs every 4 hours, Pulmicort 1 puff daily. He takes Eliquis 5 mg twice a day, Coreg 25 mg twice a day, lisinopril 10 mg a day. He also takes hydralazine and Lasix. He takes vitamin D3 2000 units a day, potassium, and Zocor. PAST SURGICAL HISTORY: Limited to wisdom tooth extraction and umbilical hernia repair. He has no history of rheumatic fever, tuberculosis, hepatitis, or transfusions. He was admitted in January of this year and was observed for several days because of low blood pressure. He wears lenses for visual correction. He feels that it was his lenses that caused his right eyebrow and right eye lacerations. He has been told he has the beginning of a cataract. He has been hypertensive for 10 years. He has had asthma since childhood. He has prostatism as manifested by difficulty starting his stream, decrease in force, nocturia x3, and voiding frequently small amounts during the day. No limits on his activities. No history of steroid use. PHYSICAL EXAMINATION: GENERAL: He is awake, alert, seen in room 17. He does have a C-collar in place. GENERAL: Awake, alert, and involved in his care. NEUROLOGIC: He is oriented to person, place, and time. GCS is 15. There are no focal lateralizing neurologic findings. SKULL: He has ecchymosis of his right eyebrow and eyelid. The laceration has been repaired by the ER group. C- collar is in place. It was temporarily removed. His C-spine is palpably normal and nontender, but because of his alcohol level we will wait 10 hours before reassessing. The C-spine studies show as above C7, T2, and T3 compression fractures. CHEST: Unremarkable. Stable to AP and lateral compression, though he is slightly tender at the lower portion of the body of the sternum. EXTREMITIES: Both upper extremities have full range of motion and no difficulties. Clavicles are palpably normal. Lower extremities are ranged and have no tenderness. ABDOMEN: Generous, distended, and slightly tympanitic. Bowel sounds are normal. Pelvis is stable to AP and lateral compression. There are no bruises on the lower extremities or around the pelvis, back, abdomen, or upper extremities. He will be admitted with medicine consultation. Note is made that his magnesium is low at 1.3. His creatinine is 1.4. His BUN is 23. His potassium is 3.9. His MCV is 97. His hematocrit is 35, and his admitting alcohol was 236. We had discussion about his alcohol level. He states that this is his wake-up call, and he plans to stop drinking. Note, the normal MCV does argue against chronic alcohol abuse, but to get to 236 represents a significant alcohol intake. /[id number]/MODL MTDD
[2018-03-17 05:21] LABS: PLATELET COUNT 160 10^3/uL (150-400)
[2018-03-17] MEDS: ACETAMINOPHEN 500 MG TAB PO SCH ×3 (05:34→22:00)
--- NOTE | 2018-03-17 10:18 | GCON ---
DATE OF CONSULTATION: 03/17/2018 REASON FOR CONSULTATION: Cervical fracture. HOSPITAL COURSE, HISTORY, AND MAJOR MEDICAL FINDINGS: The patient is a 67-year- old gentleman who presented to [facility] emergency room. He states on the night of 03/16, he was sipping some bourbon, got up from the bedroom to go into the bathroom and slipped and hit his head on the floor. He did not lose consciousness. He states that he has been having some falling episodes recently and has felt unsteady, especially when going from sitting to standing. He has had some intermittent neck pain, but nothing that has been long- lasting. He denies any arm numbness, tingling, pain, or weakness. Denies any leg pain, numbness, tingling, or weakness. He recently underwent a monitor placement here at [facility], for which he has an internal monitor. He underwent an ablation for atrial fibrillation and was placed on Eliquis at that time. He states that this was in January. REVIEW OF SYSTEMS: Review of systems is negative, other than what is stated in the HPI. Please see for pertinent negatives and pertinent positives. PAST MEDICAL HISTORY: Significant for hypoxia, atrial fibrillation, which was diagnosed in September. History of an implanted cardiac recording monitor and currently on Eliquis. History of hypertension. SOCIAL HISTORY: He does not smoke. He does drink bourbon. PAST SURGICAL HISTORY: Significant for an umbilical hernia repair. FAMILY HISTORY: His mother of breast cancer. MEDICATIONS: Include albuterol, Pulmicort, Eliquis, Coreg, lisinopril, hydralazine, Lasix, vitamin D3, potassium, and Zocor. ALLERGIES: [place] seed, penicillin, and bee venom. PHYSICAL EXAM: VITALS: Blood pressure is 160/105. His heart rate is 104. He is 94% on 3 L nasal cannula. His temperature is 36.8. GENERAL: The patient is in no acute distress. He is alert and oriented x3. He answers all questions appropriately, and his affect is appropriate to the given situation. NEUROLOGIC: Cranial nerves 2-12 are grossly intact. He does have right eye ecchymosis with a laceration that has been repaired over his right eyelid. He is 5/5 in his bilateral upper extremities, including his deltoids, triceps, biceps, wrist flexors, extensors, interossei, intrinsic radio operator ground, his iliopsoas, hamstrings, quadriceps, plantar flexion, dorsiflexion, and EHL. He has positive left Diop's. He has a positive 3+ beat clonus bilaterally. His patellar reflexes are 2+ bilaterally. His biceps and brachioradialis reflexes are a 3+. There is an unequivocal Babinski sign noted. DIAGNOSTIC REVIEW: Patient underwent a cervical spine CT, which demonstrated compression fractures noted at C7, as well as T3 and T2. The patient states that these could potentially be old. There is also evidence of some anterolisthesis of C4 on C5 with spondylosis present at C5-6 and facet arthropathy noticed at C4-5. There is some osteopenia noted. There is also evidence of a right upper lobe granuloma. ASSESSMENT AND PLAN: The patient is a 67-year-old gentleman who sustained a fall on 03/16/2018, who has been having some ongoing increase in balance difficulty over the last year. He does have some tenderness along the lower part of his cervical spine and has hyperreflexia. Based on this, we need to obtain some imaging of the spinal cord. He recently had an implantable heart rate monitor, and we will check to see if this is MRI compatible. If it is, would prefer to proceed with a cervical spine MRI to evaluate the spinal cord to rule out any stenosis that may be contributing to the patient's falls and other symptoms. If this is not able to be obtained, then we can order a CT myelogram. He is on Eliquis, so this may need to be held prior to us being able to obtain this study. We will defer treatment of the upper lobe granuloma to Trauma/Medicine Services. Would recommend continuing q.4 hours neuro checks. The patient needs a better collar in place as the current cervical collar is overriding the patient's face. We will continue to follow. NEUROSURGERY ATTENDING NOTE I met with the patient at the time of the consultation and reviewed his image. His fractures are all old and he has no neck pain. Will dc his collar and sign off. This was reviewed with Arlene Pinon from Medicine. He will follow-up PRN. /[id number]/MODL MTDD
--- NOTE | 2018-03-17 11:47 | ASMTCMCOM ---
CM Note CM Note Notes: Pt has injuries after a fall at home, he had been drinking [place]. Pt reports approx 6 shots of [place] daily. Pt resides alone, has a dghtr local. Pt was in [facility] in January 2018. Spoke with pt about ETOH use; pt verbalized he wants to stop drinking due to this "serious" hospitalization. Pt plans to seek outpatient support with an AA meeting at his [facility] and he accepted ETOH resources from this CM. Pt was concerned about if the hospital needed his new Medicaid card, FC confirmed they have the updated information. No therapies ordered, pt reports he has ambulated and feels confident returning home with the PT exercises he learned in SNF. Neurosurgery consulting as pt edinson have some spinal fxs. CM to follow. Date Signed: 03/17/2018 02:07 PM Electronically Signed By:RO Sanchez
[2018-03-17] MEDS ORDERED: ALBUTEROL 60 PUFFS/8 GM MDI IH PRN (12:03)
--- NOTE | 2018-03-17 12:06 | HOSPPROG ---
Hospitalist Progress Note Assessment/Plan: 67 yo M w/ AF, HTN, asthma, and recent history of gait instability presents with a fall. Today is my first encounter w the patient, chart reviewed. *gait instability w fall -PT and OT -drinks 6 shots of bourbon -he agreed today that he drank more than he should of -he has a hx of falling *alcohol use -monitor for s/sx of withdrawal *C7, T3 and minimal T2 compression fx -reviewed his care w neurosurgery, fx appear old -collar removed -acute hypoxemic resp failure -resumed his inhalers *asthma *htn -resumed home meds -hold lasix for now *afib -Eliquis on hold *plan: > 30 minutes following up and caring for Chan, very concerned about him going home, lives alone; will see how he does w PT and OT. Subjective: Chan is uncomfortable w the collar in place. He has no c/o pain. Realizes he may be drinking a bit much. Objective: Vital Signs Temp Pulse Resp BP Pulse Ox 36.7 C 96 16 169/118 H 97 03/17/18 11:23 03/17/18 11:23 03/17/18 11:23 03/17/18 11:23 03/17/18 11:23 Laboratory Results 03/17/18 04:26 03/17/18 04:26 03/16/18 03/17/18 03/18/18 05:59 05:59 05:59 Intake Total 1450 Output Total 100 Balance 1350 - Physical Exam Constitutional: appears nourished, chronically ill appearing, unkempt Eyes: PERRL, other (bruising around right eye area) Ears, Nose, Mouth, Throat: hearing normal Respiratory: no respiratory distress Gastrointestinal: normoactive bowel sounds, other (large and round) Skin: warm Musculoskeletal: generalized weakness Neurologic: AAOx3 Psychiatric: interacting appropriately, not anxious, not encephalopathic ICD10 Worksheet Patient Problems: Problems Problem Status Onset C7 cervical fracture Acute Facial laceration Acute Hypoxemia Acute Recurrent falls Acute Dizziness Acute Hypotension Acute
[2018-03-17] MEDS: CARVEDILOL 25 MG TAB PO SCH ×2 (12:38→16:32)
[2018-03-17] MEDS: MULTIVITAMINS 1 EACH TAB PO SCH (12:39)
[2018-03-17] MEDS: PANTOPRAZOLE SODIUM 40 MG VIAL IVP SCH (12:39)
[2018-03-17] MEDS: LISINOPRIL 20 MG TAB PO SCH (12:44)
[2018-03-17] MEDS: FAMOTIDINE 20 MG TAB PO SCH ×2 (12:44→19:59)
[2018-03-17] MEDS: BUDESONIDE 180 MCG MDI IH SCH (14:58)
[2018-03-17] MEDS ORDERED: PROTOCOL MAGNESIUM 1 DOSE IV PRN (16:12)
[2018-03-17] MEDS ORDERED: PROTOCOL POTASSIUM 1 DOSE MISC PRN (16:12)
[2018-03-17] MEDS ORDERED: MAGNESIUM SULF 2 GM/WATER 50 ML IV ONE (18:30)
--- NOTE | 2018-03-17 23:05 | SOAPPROG ---
SOAP Progress Note Assessment/Plan: Assessment: TERTIARY EXAM 67-YEAR-OLD MALE WHO SUSTAINED A FALL WITH AN ELEVATED BUT ALCOHOL LEVEL WHILE ON ELIQUIS CERVICAL COMPRESSION FRACTURES APPEARED TO BE OLD ON THE MRI IN HIS NECK IS SUPPLE WITH NO PAIN OR TENDERNESS HE HAS NO COMPLAINTS EXCEPT FOR HIS RIGHT EYE ECCHYMOSIS AND SOME RIGHT LATERAL RIB PAIN HEENT PERIORBITAL ECCHYMOSIS ON THE RIGHT, PERRLA, NONICTERIC, NO ADENOPATHY, NORMAL OCCLUSION NECK SUPPLE NONTENDER WITHOUT THYROMEGALY CHEST CLEAR AND NO PALPABLE RIB OR STERNAL TENDERNESS OR FRACTURES COR REGULAR RHYTHM WITHOUT MURMURS ABDOMEN SOFT NONTENDER WITHOUT MASSES OR HERNIAS GENITALIA NORMAL EXTREMITIES FULL RANGE OF MOTION FULL PULSES NEUROLOGIC PHYSIOLOGIC AND SYMMETRIC IMPRESSION BLUNT FACIAL TRAUMA Plan: PROBABLY HOME IN THE A.M. IF STABLE 03/17/18 23:02 Objective: Vital Signs Temp Pulse Resp BP Pulse Ox 36.9 C 93 16 127/81 H 95 03/17/18 22:14 03/17/18 22:14 03/17/18 22:14 03/17/18 22:14 03/17/18 22:14 Laboratory Results 03/17/18 04:26 03/17/18 18:30 03/16/18 03/17/18 03/18/18 05:59 05:59 05:59 Intake Total 1450 Output Total 100 100 Balance 1350 -100 ICD10 Worksheet Patient Problems: Problems Problem Status Onset C7 cervical fracture Acute Facial laceration Acute Hypoxemia Acute Recurrent falls Acute Dizziness Acute Hypotension Acute
[2018-03-18] MEDS: THIAMINE HCL 500 MG in NS 100 ML IV SCH (02:15)
[2018-03-18] MEDS: ACETAMINOPHEN 500 MG TAB PO SCH ×2 (05:53→14:33)
[2018-03-18] MEDS: BUDESONIDE 180 MCG MDI IH SCH (08:34)
[2018-03-18] MEDS ORDERED: CHOLECALCIFEROL VIT D3 2,000 UNITS TAB/CAP PO SCH (09:00)
--- NOTE | 2018-03-18 09:42 | HOSPPROG ---
Hospitalist Progress Note Assessment/Plan: 67 yo M w/ AF, HTN, asthma, and recent history of gait instability presents with a fall. *gait instability w fall -PT and OT -drinks 6 shots of bourbon -he agreed today that he drank more than he should of -he has a hx of falling *alcohol use -monitor for s/sx of withdrawal -he realizes this is impacting his health and increases his risk of falling *C7, T3 and minimal T2 compression fx -reviewed his care w neurosurgery, fx appear old -collar removed -acute hypoxemic resp failure -resumed his inhalers *asthma *htn -resumed home meds *afib, currently in sinus rhythm -Eliquis *plan:met w the patient w Dr Plaza, plan is dc after PT and OT see him. He will need his stitches out next week and will see Dr Plaza or his PA. Subjective: Chan feels fine, anxious to be dc. Objective: Vital Signs Temp Pulse Resp BP Pulse Ox 37.0 C 75 18 139/95 H 96 03/18/18 07:29 03/18/18 07:29 03/18/18 07:29 03/18/18 07:29 03/18/18 07:29 Laboratory Results 03/17/18 04:26 03/18/18 04:24 03/17/18 03/18/18 03/19/18 05:59 05:59 05:59 Intake Total 1450 105 Output Total 100 100 Balance 1350 5 - Physical Exam Constitutional: no apparent distress, appears nourished, not in pain Eyes: PERRL, other (right eye area with ecchymosis, has stitches below the right eyebrow) Cardiovascular: regular rate and rhythym Respiratory: no respiratory distress, expiratory wheeze (scattered) Skin: warm Musculoskeletal: generalized weakness Neurologic: AAOx3 Psychiatric: interacting appropriately, anxious ICD10 Worksheet Patient Problems: Problems Problem Status Onset C7 cervical fracture Acute Facial laceration Acute Hypoxemia Acute Recurrent falls Acute Dizziness Acute Hypotension Acute
[2018-03-18] MEDS ORDERED: APIXABAN 5 MG TAB PO SCH (09:45)
[2018-03-18] MEDS ORDERED: FUROSEMIDE 40 MG TAB PO SCH (09:45)
--- NOTE | 2018-03-18 09:48 | TRAUMAPN ---
Trauma Progress Note - Problem/Surgery Performed (1) Fall at home Assessment/Plan: previously admitted for fall at home. not likely syncope, patient reports be less "steady on his feet" this past year contributing factors include his alcohol intake and living alone Qualifiers: Encounter type: initial encounter Qualified Code(s): W19.XXXA - Unspecified fall, initial encounter; Y92.009 - Unspecified place in unspecified non-institutional (private) residence as the place of occurrence of the external cause; Y92.009 - Unspecified place in unspecified non-institutional ( private) residence as the place of occurrence of the external cause (2) Concussion Assessment/Plan: discussed avoidance of re-injury/no contact sports x 6 weeks Qualifiers: Encounter type: initial encounter Loss of consciousness presence/duration: without LOC Qualified Code(s): S06.0X0A - Concussion without loss of consciousness, initial encounter (3) Hypertension Assessment/Plan: well controlled, will restart Lasix this morning as well as K+ replacment continue Hydralazine, lisinopril, Coreg He has a follow up appointment with his PCP this coming Friday, Dr. Ventura Spencer Qualifiers: Hypertension type: essential hypertension Qualified Code(s): I10 - Essential (primary) hypertension (4) Alcohol abuse Assessment/Plan: Chan admits to drinking 6 shots of bourbon per night/he admits that he needs to quit and has a plan on how to remain sober. I encouraged him to follow through with AA. (5) Facial laceration Qualifiers: Encounter type: initial encounter Qualified Code(s): S01.81XA - Laceration without foreign body of other part of head, initial encounter Assessment/Plan: PT/OT evaluation if cleared will discharge later today. Subjective: Chan is sitting up in a chair in his room. He reports being ambulatory and feels ready to go home. He has mild ESCOBAR and facial pain, but denies visual disturbances, hearing loss, nausea/emesis Objective: Vital Signs Temp Pulse Resp BP Pulse Ox 37.0 C 75 18 139/95 H 96 03/18/18 07:29 03/18/18 07:29 03/18/18 07:29 03/18/18 07:29 03/18/18 07:29 Laboratory Results 03/17/18 04:26 03/18/18 04:24 03/17/18 03/18/18 03/19/18 05:59 05:59 05:59 Intake Total 1450 105 Output Total 100 100 Balance 1350 5 - C-Spine Clearance Cervical Spine Cleared: Yes Provider who Cleared Cervical Spine: Kevin Physical Exam - Physical Exam General Appearance: WD/WN, alert EENT: PERRL/EOMI, other (contusion right periorbital, sutured laceration right lateral brow) Neck: non-tender Respiratory: chest non-tender, lungs clear, wheezing (expiratory) Cardiac/Chest: normal peripheral pulses, regular rate, rhythm Peripheral Pulses: 4+: carotid (R), carotid (L), dorsalis-pedis (R), dorsalis- pedis (L) Abdomen: normal bowel sounds, non-tender, soft Male Genitalia: deferred Rectal: deferred Back: Normal inspection Skin: normal color, warm/dry Extremities: normal range of motion, non-tender, normal inspection, pedal edema Neuro/Psych: alert, normal mood/affect, oriented x 3 Time Spent w/Patient (minutes): 25
[2018-03-18] MEDS: MULTIVITAMINS 1 EACH TAB PO SCH (09:54)
[2018-03-18] MEDS: CARVEDILOL 25 MG TAB PO SCH (09:57)
[2018-03-18] MEDS: FAMOTIDINE 20 MG TAB PO SCH (09:57)
[2018-03-18] MEDS: PANTOPRAZOLE SODIUM 40 MG VIAL IVP SCH (09:58)
[2018-03-18] MEDS ORDERED: MAGNESIUM SULF 1 GM/DEXTROSE 100 ML IV ONE (10:01)
[2018-03-18] MEDS: LISINOPRIL 20 MG TAB PO SCH (10:08)
[2018-03-18 12:18] VITALS: BP 147/95
--- NOTE | 2018-03-18 14:46 | ASMTLACE ---
LACE Length of stay for Answers: 3 days current admission Acuity / Level of Answers: No Care: Did the patient have an inpatient admission? Comorbidities - select Answers: History of falls all that apply Opioid dependence / Chronic pain Other Notes: AFib; Pulm HTN # of Emergency department Answers: 3-4 visits in the last 6 months Score: 14 Date Signed: 03/18/2018 02:45 PM Electronically Signed By:RO Sanchez
--- NOTE | 2018-03-18 14:47 | ASMTCMCOM ---
CM Note CM Note Notes: PT/ADMITTING COUNSELOR clear pt for home, no CM d/c needs identified. Date Signed: 03/18/2018 02:47 PM Electronically Signed By:RO Sanchez
--- NOTE | 2018-03-18 15:35 | PDDCSUM ---
Discharge Summary Discharge Summary: #[id number] Dictated Rafita Plaza MD, FACS
--- NOTE | 2018-03-18 15:48 | GDS ---
DISCHARGE DIAGNOSES: 1. Status post fall at home. 2. Concussion without loss of consciousness. 3. Right brow and eyelid laceration. 4. Hypertension. 5. Alcohol abuse. 6. Paroxysmal atrial fibrillation. 7. Chronic anticoagulation (Eliquis). 8. History of asthma. HOSPITAL COURSE: For details of admission history and physical, please see dictated summary. Briefl y, the patient is a 67-year-old retired male who admits to drinking 6 shots of bourbon per night. On the evening of his fall he recalls losing his balance and tripping, landing on the right side of his head. He however did not lose consciousness and was able to call for help. He had been admitted to the hospital for a similar fall 1 month prior. The patient was evaluated in the emergency departmen t by Dr. Gera Luna and admitted to the medical service with Trauma consultation. This laceration was repaired in the emergency department. CT scan of the head on admission showed chronic changes but nothing acute and specifically no intrace rebral hemorrhage. CT of the cervical spine revealed age-indeterminate fractures of C7, T1 and T2 an d the patient did not complain of neck pain, though he was intoxicated upon arrival. He was kept in a cervical collar until he regained sobriety and had a clinical exam performed and at that point, was complaining of some mild neck pain. Neurosurgical consultation was requested. An MRI of the cervic al spine was performed and showed the C7-T1, T2 and T3 vertebrae showed mild chronic compression frac tures without acute injury. The patient's cervical spine was cleared after he was seen by Dilma Marie and Dr. Matthews of Neuros urgery. The hospitalist service saw the patient initially. Dr. Stinson saw the patient, followe d by Arlene Pinon and his prior medications were reintroduced, although his Eliquis was held durin g his hospital stay. I saw the patient for the 1st time on the date of discharge and arranged for occupational, physical a nd speech therapy, which had not previously been ordered and he was cleared from their perspective fo r discharge to home. He had no findings on his tertiary exam other than the injuries mentioned. The patient and I discussed his alcohol use to some degree and he was highly motivated and had a plan fo r how he was going to stop drinking, starting with the holidays and thereafter with AA meetings held in his neighborhood. Condition at time of discharge was improved. Followup arranged with his primary care physician, Dr. Ventura Spencer this coming Friday (previously arranged appointment). He will return to my office for f ollowup and suture removal in the upcoming week. DISCHARGE MEDICATIONS: Pulmicort 180 mcg, Flexhaler 1 puff daily, Zocor 40 mg p.o. at bedtime, carve dilol 25 mg p.o. twice daily, Eliquis 5 mg p.o. twice daily, albuterol 1-2 puffs q.4 hours p.r.n., vi tamin D3 2000 units per day, potassium chloride 20 mEq p.o. daily, furosemide 40 mg p.o. daily, hydra lazine 25 mg p.o. q.a.m. and 50 mg p.o. at bedtime, lisinopril 20 mg p.o. daily. The patient was not taking narcotics at time of discharge, but was using Tylenol for pain control. The patient was give n instructions in postconcussive care and left the hospital in stable condition. /[id number]/MODL
[2018-03-18] MEDS ORDERED: THIAMINE HCL 500 MG in NS 100 ML IV SCH (21:00)
[2018-03-18] MEDS ORDERED: ATORVASTATIN CALCIUM 20 MG TAB PO SCH (21:00)
--- NOTE | 2018-03-19 12:34 | CPEKG ---
Test Reason : OPEN Blood Pressure : / mmHG Vent. Rate : 090 BPM Atrial Rate : 090 BPM P-R Int : 112 ms QRS Dur : 086 ms QT Int : 353 ms P-R-T Axes : 021 018 045 degrees QTc Int : 432 ms Sinus rhythm Low voltage, extremity leads Confirmed by German Bajwa ([id number]) on 03/19/2018 12:34:09 PM Referred By: Confirmed By:German Bajwa
[2018-03-19] MEDS ORDERED: THIAMINE HCL 100 MG TAB PO SCH (21:00)
[2018-03-20] MEDS ORDERED: THIAMINE HCL 100 MG TAB PO SCH (09:00)
== END 2018-03-18 14:47 | disposition home or self-care (01) ==
LOC: F3N 03-17 01:02
PROVIDERS: ADMIT Student in an Organized Health Care Education/Training Program; ATTEND Student in an Organized Health Care Education/Training Program
PROC: 0HQ1XZZ Repair Face Skin, External Approach (ICD-10-PCS; principal; 2018-03-16)
DX: S06.0X0A Concussion without loss of consciousness, initial encounter (principal); S01.111A Laceration without foreign body of right eyelid and periocular area, initial encounter; I10 Essential (primary) hypertension; F10.10 Alcohol abuse, uncomplicated; I48.0 Paroxysmal atrial fibrillation; Z79.01 Long term (current) use of anticoagulants; J45.909 Unspecified asthma, uncomplicated; W01.0XXA Fall on same level from slipping, tripping and stumbling without subsequent striking against object, initial encounter; Y92.009 Unspecified place in unspecified non-institutional (private) residence as the place of occurrence of the external cause
CPT/HCPCS: 12013; 70450; 71045; 72125; 72141; 92523; 93005; 96376; 97116; 97161; 97166; 99285; G0378; G8978; G8979; G8980; G8987; G8988; G9165; G9166; G9167; J2405; J3411; J3475; J7613; L0172; 84484-PO; G0480

== ENCOUNTER 2018-05-19 05:05 | Inpatient (IN) | payer OTHER ==
--- NOTE | 2018-05-19 05:11 | EDPHY ---
H & P Time Seen by Provider: 05/19/18 05:11 HPI/ROS: HPI CHIEF COMPLAINT: Fall at home back pain. Unable to walk. HISTORY OF PRESENT ILLNESS: 67-year-old male, history of AFib on ++Eliquis++, also history of alcoholism daily alcohol use and drinks 6 shots of bourbon per night, patient states she drank all day last night all night got intoxicated had a fall at home. Patient unsure exactly how he fell however states he thinks he fell in his kitchen on the ground, he thinks he may have landed on his belly but is unsure. He now has low lumbar back pain paravertebral right- sided lumbar. Does not radiate anywhere. However he is unable to walk due to how much pain he has. Denies chest pain or shortness of breath. He is unsure if he struck his head. Denies neck pain. He is on Eliquis. He states he was able to crawl to his futon where he was able to lay all night. Any movement he had back pain.. He denies any saddle anesthesia, denies any focal weakness, denies any focal numbness or tingling. He arrives to the emergency room by EMS. Received 100 mcg IV fentanyl prior to arrival. Was admitted previously for mechanical trip and fall due to alcohol intoxication with concussion. Past Medical History: AFib on Eliquis, alcoholism Past Surgical History: Denies recent surgery Social History: Alcohol this evening. Denies drugs or tobacco. Family History: Noncontributory ROS REVIEW OF SYSTEMS: 10 Systems were reviewed and negative with the exception of the elements mentioned in the history of present illness. Exam Constitutional elderly, nontoxic triage nursing summary reviewed, vital signs reviewed, awake/alert. Eyes normal conjunctivae and sclera, EOMI, PERRLA. HENT head and neck atraumatic on exam, moist mucus membranes, no epistaxis, neck supple/ no meningismus, no raccoon eyes. Respiratory clear to auscultation bilaterally, normal breath sounds, no respiratory distress, no wheezing. Cardiovascular rate normal, regular rhythm, no murmur, no edema, distal pulses normal. Gastrointestinal soft, non-tender, no rebound, no guarding, normal bowel sounds, no distension, no pulsatile mass. Genitourinary no CVA tenderness. Musculoskeletal back exam: Mild tender palpation down the lumbar spine paravertebral right-sided lumbar, also tenderness over the right CVA region. No step-offs or crepitus. Patient is able to move both of his legs however when he moves both of his legs he has low back pain. no midline vertebral tenderness, full range of motion, no calf swelling, no tenderness of extremities, no meningismus, good pulses, neurovascularly intact. Skin pink, warm, & dry, no rash, skin atraumatic. Neurologic awake, alert and oriented x 3, AAOx3, moves all 4 extremities equally, motor intact, sensory intact, CN II-XII intact, normal cerebellar, normal vision, normal speech. Psychiatric normal mood/affect. Heme/Lymph/Immune no lymphadenopathy. Differential Diagnosis: Includes but is not limited to in a particular order mechanical trip and fall, lumbar compression fracture, disc herniation, nerve root compression, CVA injury, kidney laceration, closed head injury, subdural, traumatic subarachnoid Medical Decision Making: Plan for this patient given his fall does not recall the events will obtain basic blood work, he is on Eliquis, plan for CT scan head without contrast, CT cervical spine without contrast, chest x-ray, CT scan abdomen pelvis with IV contrast to rule out kidney laceration given his pain on that side, as well as images lumbar spine to rule out compression fractures given the amount of pain he is having. Gentle IV fluids. EKG, IV Dilaudid for pain control and re-evaluate. Re-evaluation: Plan for this patient will proceed to CT scan head without contrast CT cervical spine without contrast for trauma and fall on Eliquis CT chest abdomen pelvis with IV contrast for trauma given back pain fall. EKG interpretation by me on record in [facility] system. Impression time of EKG 5:43 a.m., sinus tach rate of 100 the any signs of acute ischemia. Some motion artifact visualized. Troponin 0.02. CT scan head without contrast and CT cervical spine without contrast negative for acute traumatic injury called to me by [facility] faxed preliminary report over. CT scan chest abdomen pelvis with IV contrast called to me by [facility]. This shows significant L2 compression fracture with retropulsion of fragments with severe canal stenosis. Please see full dictation report of details. There are other incidental findings. CT scan reviewed this shows moderate to severe L2 compression deformity with associated bony retropulsion causing severe central canal stenosis. Other incidental findings. This report was faxed over to me at 7:04 a.m.. From [facility]. Given the findings of this report I will consult Neurosurgery and Trauma surgery.. Plan for hospital admission. 7:08 a.m. I spoke with Dr. Rey, neurosurgery. Discussed case in detail with L2 compression fracture. Would like an MRI of the lumbar spine. MRI as been ordered. Patient updated. Will consult Trauma surgery for admission. 0714: I spoke with Trauma surgery Dr. Escobar, agreed to admit the patient. Neurosurgery has been consult they requested MRI which is been ordered. I updated the patient at 7:15 a.m. About his results. Patient agrees for hospital admission he is requesting more pain medicine he tells me his back is 8/10 pain. I will order him another mg IV Dilaudid. Plan for MRI and admission to medical-surgical for Neurosurgery and Trauma surgery to see. Additionally patient had a CT scan of his head, cervical spine, chest abdomen pelvis that did not show acute traumatic injury except for the L2 compression fracture there are other incidental findings on the CT reports. Source: Patient, EMS - Medical/Surgical History Hx Asthma: Yes Hx Chronic Respiratory Disease: Yes Hx Diabetes: No Hx Cardiac Disease: Yes Hx Renal Disease: No Hx Cirrhosis: No Hx Alcoholism: No Hx HIV/AIDS: No Hx Splenectomy or Spleen Trauma: No Other PMH: hyperlipidemia, htn,asthma NON ISHCEMIC CARDIOMYOP, PULM HTN, AFIB, HERNIA , TONSILS - Social History Smoking Status: Never smoked Constitutional: Initial Vital Signs Temperature (C) 36.8 C 05/19/18 05:14 Heart Rate 96 05/19/18 05:14 Respiratory Rate 20 05/19/18 05:14 Blood Pressure 144/99 H 05/19/18 05:14 O2 Delivery Mode Nasal Cannula Allergies/Adverse Reactions: sunflower seed Allergy (Severe, Verified 01/30/18 21:02) Anaphylaxis Penicillins Allergy (Intermediate, Verified 11/04/17 19:37) Rash bee venom protein (honey bee) Allergy (Verified 11/04/17 19:37) Home Medications: Medication Instructions Recorded Albuterol [Proventil Inhaler HFA 1 - 2 puffs IH Q4H PRN 01/28/18 (*)] Budesonide 180 Mcg INH [Pulmicort 1 puffs IH DAILY 01/28/18 180Mcg Flexhaler (*)] Carvedilol [Coreg (*)] 25 mg PO DAILY 01/28/18 Cholecalciferol Vit D3 [Vitamin D3 2,000 units PO DAILY 01/28/18 (*)] Simvastatin [Zocor] 40 mg PO HS 01/28/18 Potassium Cl [Klor-Con 20 meq (*)] 20 meq PO DAILY 03/16/18 hydrALAZINE [Apresoline 50 mg (*)] 25 mg PO DAILY 03/16/18 Lisinopril [Zestril 20 mg (*)] 20 mg PO DAILY 03/17/18 hydrALAZINE [Apresoline 50 mg (*)] 50 mg PO HS 03/17/18 Apixaban [Eliquis] 5 mg PO BID tab 03/18/18 Furosemide [Lasix 40 MG (*)] 40 mg PO DAILY tab 03/18/18 Carvedilol [Coreg (*)] 50 mg PO HS 05/19/18 Medical Decision Making - Data Points Laboratory Results: Laboratory Results 05/19/18 05:20 05/19/18 05:20 Medications Given: Hydrocodone Bitart/Acetaminophen ([place] 5/325) 1 - 2 tab PO Q6HRS PRN PRN Reason: Pain, Moderate Able to Take PO Stop: 05/29/18 10:26 Last Admin: 05/19/18 23:00 Dose: 2 tab Atorvastatin Calcium (Lipitor) 20 mg PO HS POLINA Stop: 11/15/18 20:59 Last Admin: 05/19/18 23:00 Dose: 20 mg Budesonide (Pulmicort 180mcg Flexhaler) 1 puffs IH DAILY POLINA Stop: 11/15/18 19:59 Last Admin: 05/19/18 20:32 Dose: 1 inh Carvedilol (Coreg) 50 mg PO DAILY18 POLINA Stop: 11/15/18 17:59 Last Admin: 05/19/18 18:31 Dose: 50 mg Hydralazine HCl (Apresoline) 50 mg PO HS POLINA Stop: 11/15/18 20:59 Last Admin: 05/19/18 20:38 Dose: 50 mg Lactated Ringer's (Lr) 1,000 mls @ 75 mls/hr IV CONT POLINA Stop: 11/15/18 10:29 Last Admin: 05/19/18 10:56 Dose: 1,000 mls Lisinopril (Zestril) 20 mg PO DAILY POLINA Stop: 11/15/18 15:59 Last Admin: 05/19/18 15:59 Dose: 20 mg Morphine Sulfate (Morphine) 1 - 2 mg IVP Q1HR PRN PRN Reason: Pain, Severe Unable to Take PO Stop: 05/29/18 10:42 Last Admin: 05/19/18 12:15 Dose: 2 mg Discontinued Medications Hydromorphone HCl (Dilaudid) 1 mg IVP EDNOW ONE Stop: 05/19/18 05:18 Last Admin: 05/19/18 05:23 Dose: 1 mg Hydromorphone HCl (Dilaudid) 1 mg IVP EDNOW ONE Stop: 05/19/18 07:17 Last Admin: 05/19/18 07:21 Dose: 1 mg Hydromorphone HCl (Dilaudid) 1 mg IVP ONCE ONE Stop: 05/19/18 07:17 Last Admin: 05/19/18 07:21 Dose: Not Given Sodium Chloride (Ns) 1,000 mls @ 0 mls/hr IV EDNOW ONE; Wide Open PRN Reason: Protocol Stop: 05/19/18 05:18 Last Admin: 05/19/18 05:23 Dose: 1,000 mls Sodium Chloride (Ns) 1,000 mls @ 0 mls/hr IV ONCE ONE PRN Reason: Wide Open Stop: 05/19/18 06:39 Last Admin: 05/19/18 06:40 Dose: 1,000 mls Lorazepam (Ativan Injection) 1 mg IVP ONCE ONE Stop: 05/19/18 08:10 Last Admin: 05/19/18 08:17 Dose: 0.5 mg Ondansetron HCl (Zofran) 4 mg IVP EDNOW ONE Stop: 05/19/18 05:29 Last Admin: 05/19/18 05:44 Dose: 4 mg Point of Care Test Results: Chemistry 05/19/18 05/19/18 05:26 05:23 POC Sodium 135 mEq/L mEq/L (135-145) POC Potassium 3.5 mEq/L mEq/L (3.3-5.0) POC Chloride 95 mEq/L L mEq/L (97-110) POC BUN 16 mg/dL mg/dL (7-23) POC Creatinine 1.5 mg/dL H mg/dL (0.7-1.3) POC Glucose 141 mg/dL H mg/dL (70-100) POC Troponin I 0.02 ng/mL ng/mL (0.00-0.08) ISTAT H&H 05/19/18 05:26 POC Hgb 13.9 gm/dL gm/dL (13.7-17.5) POC Hct 41 % % (40-51) Departure - Departure Disposition: [facility] Inpatient Acute Clinical Impression: Fall Qualifiers: Encounter type: initial encounter Qualified Code(s): W19.XXXA - Unspecified fall, initial encounter Back pain Qualifiers: Back pain location: low back pain Chronicity: acute Back pain laterality: unspecified Sciatica presence: without sciatica Qualified Code(s): M54.5 - Low back pain Compression fracture of L2 Qualifiers: Encounter type: initial encounter Fracture type: closed Qualified Code(s): S32.020A - Wedge compression fracture of second lumbar vertebra, initial encounter for closed fracture Condition: Fair
[2018-05-19] MEDS ORDERED: HYDROmorphONE/DILAUDID 2 MG/ML INJ IVP ONE ×2 (05:17→07:16)
[2018-05-19] MEDS ORDERED: NS 1,000 ML IV ONE ×2 (05:17→06:38)
[2018-05-19] MEDS ORDERED: IOPAMIDOL (ISOVUE 370) 75 ML BTL IV ONE (05:26)
[2018-05-19] MEDS ORDERED: ONDANSETRON 4 MG/2 ML VIAL IVP ONE (05:28)
[2018-05-19 05:31] LABS: PLATELET COUNT 156 10^3/uL (150-400)
[2018-05-19 05:41] LABS: INR 1.27 (0.83-1.16); PROTIME(PATIENT) 16.1 SEC (12.0-15.0)
[2018-05-19] MEDS ORDERED: HYDROmorphONE/DILAUDID 1 MG/ML INJ IVP ONE (07:16)
[2018-05-19] MEDS ORDERED: LORazepam 2 MG/ML INJ IVP ONE (08:09)
[2018-05-19] MEDS ORDERED: LORazepam 2 MG/ML INJ ONE (08:11)
[2018-05-19] MEDS ORDERED: ONDANSETRON DISINTEGRATING 4 MG TAB PO PRN (10:27)
[2018-05-19] MEDS ORDERED: ALBUTEROL 60 PUFFS/8 GM MDI IH PRN (10:30)
[2018-05-19] MEDS ORDERED: LR 1,000 ML IV SCH (10:30)
--- NOTE | 2018-05-19 11:06 | GCON ---
CONSULTATION/HISTORY AND PHYSICAL DATE OF CONSULTATION: 05/19/2018 Patient seen in the emergency department by Dr. Rey and myself from neurosurgical service on 05/19, at 7:15 a.m. CHIEF COMPLAINT: Fall, back pain, unable to walk. HISTORY OF PRESENT ILLNESS: The patient is a 67-year-old male with a history of atrial fibrillation. He was on Eliquis. Also has a history of alcoholism with daily alcohol intake and usually drinks a bout 6 or 7 shots of bourbon equivalent per night. The patient states that he drank alcohol last nig ht, was intoxicated and had a fall at home. He was unsure exactly how he fell. However, he thinks indra jo fell in the kitchen, and then worked his way to his futon, where he fell asleep. He complains of l ower back pain, was brought in via EMS. Was seen in the emergency department. Imaging was obtained that showed an L2 compression fracture. There was some retropulsion associated with it. The patient currently denies any neck pain. He does have some lower thoracic, but more exquisite lumbar spine p ain. As mentioned, he is on Eliquis for a history of atrial fibrillation. He denies any headache. No neck pain. No chest pain or shortness of breath. He denies any saddle numbness. No focal weakne ss or focal numbness or tingling in his upper or lower extremities. The patient will be admitted to Trauma Services. We were consulted as well. PAST MEDICAL HISTORY: Significant for the following: Hypotension, dizziness, recurrent falls, hypox emia, C7 cervical fracture, recurrent falls at home, concussion, hypertension history, as well as alc ohol abuse. ALLERGIES: [place] seeds, penicillin, and bee venom. MEDICATIONS: Prior to admission, unconfirmed yet, but per medical record, he is on hydralazine, simv astatin, potassium, Eliquis, Zofran, lisinopril, Lasix, Pepcid, vitamin D3, Coreg, budesonide inhaler , albuterol, and Tylenol. PAST SURGICAL HISTORY: None listed. SOCIAL HISTORY: The patient is , 67 years of age. He lives in [place] on [facility] and works for [employer]. FAMILY HISTORY: Noncontributory. IMMUNIZATIONS: Reported up to date. TRAVEL: No recent travel. REVIEW OF SYSTEMS: Complete 10-point review of systems was negative, except as mentioned in HPI. PHYSICAL EXAM: GENERAL: This is an awake, alert, oriented male in no acute distress. He is able to follow commands appropriately. VITAL SIGNS: Most recent vital signs, blood pressure 152/102, with a MAP of 118, 93 heart rate, respiratory rate of 20, 94% on nasal cannula, temperature 36.8. HEENT: Head is normocephalic, atraumatic. Pupils are equal, round, reactive to light. EOMs intact. Full v isual erickson by confrontation. Ears are patent. Nose is patent. NECK: Soft and supple, midline te nderness, full range of motion in flexion, extension, lateral bending and rotation. RESPIRATORY AND CARDIAC: Deferred. ABDOMEN: Soft, nontender. Does have a barrel type belly. and RECTAL: Yara ent has normal rectal tone. Normal sensation. No saddle numbness. Exam done by Dr. Rey. NEUROL OGIC: The patient is awake, alert, oriented x3. He is awake and alert to person, place, time, and s ituation. Memory is intact to immediate, past, and current events. Speech: No aphasia, dysarthria, dysphonia. Cranial nerves 2-12 are grossly intact. Motor: Patient has 5/5 strength in all muscle groups of the bilateral upper and lower extremities to include deltoids, biceps, triceps, brachioradi tita, wrist flexors and extensors, pediatric psychiatrist intrinsic fingers, iliopsoas, quadriceps, hamstring, plantar flexion, dorsiflexion, EHL testing. Sensation is grossly intact to light touch throughout all dermat ome distributions, upper/lower extremities. Negative straight leg raise. Negative MISSY test. Refl exes of biceps, triceps, brachioradialis, knee jerk and ankle jerk are 2+/4. Toes are downgoing bila terally. Diop's negative. Babinski negative. No evidence of clonus. Patient does have point tenderness to the lower thoracic and lumbar spine with palpation. MEDICAL DECISION MAKING AND DIAGNOSTIC STUDIES: Laboratory tests obtained 05/19/2018, shows a white count of 6.43, with an H and H of 13.3 and 36.6, with a platelet count of 156. Coags on 05/19/2018, shows a PT of 16.1, INR of 1.27, PTT of 32.0. 05/19/2018: Sodium 135, potassium 3.5, chloride 95, B UN 16, creatinine 1.5, and a glucose of 141, lipase of 357. Alcohol level was 72. IMAGING: CT scan of the head without contrast, CT scan of the cervical spine without contrast were n egative for acute traumatic injury. I was called directly in the emergency department. CT scan of t he chest and abdomen with IV contrast shows a significant L2 compression fracture of the retropulsion and fragment with severe canal stenosis. MRI of the thoracic spine pending. MRI of the lumbar spine pending. ASSESSMENT: The patient is a 67-year-old male. He will be admitted to trauma services. Does have a history of significant alcohol intake, as well as other medical problems. Likely, will consult [facility] as well. The patient did have a fall and suffered an L2 fracture with stenosis noted a t the fracture level. Pending MRI. PLAN/DISCUSSION: The patient is 67. He did have a fall this last night. He does have daily intake of alcohol of equivalent of 6-7 shots of bourbon. He did have a fall, was able to crawl to his futon , woke up this morning, and EMS was notified. He came to the emergency department because he was shannon ble to walk and had lower back pain. CT scan of the lumbar spine showed an L2 compression fracture. The patient was seen both by myself and Dr. Rey in room 17 in the emergency department at 7:15 a. m. on 05/19/2018. A rectal exam was performed. He does have good tone and sensation. A brace was o rdered, as well as an MRI of the thoracic and lumbar spine. Will recommend bed rest for approximatel y 2 days. He will need to get this brace fitted. Will check upright x-rays once the brace is obtain ed and fitted properly. The patient understands and agrees. All questions and concerns are answered . /[id number]/MODL
--- NOTE | 2018-05-19 11:06 | GHP ---
DATE OF ADMISSION: 05/19/2018 CHIEF COMPLAINT: Back pain. HISTORY OF PRESENT ILLNESS: A 67-year-old male fell in his home, landing on his back. He crawled ba ck to bed, took some Tylenol, eventually the pain was so severe he was brought to the hospital. He d enies loss of consciousness during this fall. He states he has equilibrium problems. ALLERGIES: None. CURRENT HOME MEDICATIONS: Eliquis, which he took last night, simvastatin, Lasix, hydralazine, carved ilol, lisinopril, potassium chloride. REVIEW OF SYSTEMS: Denies heart attacks, epilepsy, diabetes. Does have a history of atrial fibrilla tion. PREVIOUS SURGERY: Tonsillectomy, umbilical hernia repair. SOCIAL HISTORY: Nonsmoker. Alcohol 4 shots of bourbon a day. PHYSICAL EXAMINATION: HEENT: Within normal limits. HEAD: Atraumatic. NECK: Nontender. No supra clavicular nor axillary crepitus. Clavicles are intact. UPPER EXTREMITIES: Atraumatic. LUNGS: Cl ear. HEART: Normal S1, S2. Irregular rhythm consistent with known atrial fibrillation. POSTERIOR SPINAL EXAM: Shows tenderness over the lumbar area. Pelvis is stable to compression. ABDOMEN: Sof t, benign, rotund. LOWER EXTREMITIES: Full dorsiflexion and plantar flexion strength. No areas of numbness. Hurts when he moves his legs and his back, but there is no radiculopathy down the legs. IMAGING: CT scan of the chest and abdomen reviewed showing multiple old compression fractures in the thoracic spine, as well as an acute appearing L2 fracture with some retropulsion. An MRI has also b een done showing minor retropulsion of endplate fragments. ASSESSMENT: Acute injury to L2 with compression fracture, significant loss of height. PLAN: OT/PT evaluation, hospital admission for pain management. Neurosurgery has seen the patient a nd, at present, have recommended a brace, which has been ordered. Further management will be based o n how the patient does from a pain management standpoint. Otherwise, we have renewed his home medici mandeep, held the Eliquis and ordered some IV and p.o. narcotic pain management. /[id number]/MODL
[2018-05-19] MEDS: HYDROCODONE/APAP 5/325 TAB PO PRN ×2 (13:18→23:00)
[2018-05-19] MEDS ORDERED: FLUMAZENIL 0.5 MG/5 ML MDV IVP PRN (14:05)
[2018-05-19] MEDS ORDERED: LORazepam 2 MG/ML INJ IVP PRN (14:05)
--- NOTE | 2018-05-19 15:03 | GCON ---
DATE OF CONSULTATION: 05/19/2018 HISTORY OF PRESENT ILLNESS: The patient is a pleasant 67-year-old gentleman with a history of atrial fibrillation, heavy alcohol use, who had a mechanical fall last evening. It sounds like he had been drinking a fair amount. He got up to pivot, and he fell and hit his back. He went to bed, took david e Tylenol, and then ultimately sought care in the [facility] because of ongoing pain. Evaluation revealed an L2 acute compression fracture with moderate central canal stenosis without arabella rologic symptoms. He acknowledges the role of alcohol in this fall. He states that he has been cardioverted and typically is in sinus rhythm. He currently has a LINQ mo nitor in place. In the past, he has gone without alcohol without withdrawal symptoms for a period of weeks. He has had some fevers and chills, but no clear symptoms. 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 He does not have shortness of breath. REVIEW OF SYSTEMS: Complete 10-point review of systems conducted and negative except as noted in the HPI. I discussed the case with Dr. Amandeep Beach. PAST MEDICAL HISTORY: 1. Suspected alcoholism. 2. Atrial fibrillation, on anticoagulation with a LINQ monitor. 3. Hypertension. 4. Airway disease. 5. Hyperlipidemia. ALLERGIES: [place] seeds, penicillin, bees. MEDICATIONS: Apixaban, albuterol, budesonide inhaler, carvedilol, vitamin D3, furosemide daily, hydr alazine, lisinopril, potassium chloride, simvastatin. SOCIAL HISTORY: Lives alone. Drinks alcohol daily somewhere around the neighborhood of 6-10 shots a day. Nonsmoker. FAMILY HISTORY: Reviewed and unremarkable. Sister present at the bedside and healthy. PHYSICAL EXAMINATION: VITAL SIGNS: Temp 36.6, blood pressure 168/113, pulse 96, breathing 19 times a minute, 92% on 2 L. GENERAL: No acute distress. HEENT: Sclerae anicteric. Oropharynx clear. M ucous membranes moist. NECK: Supple without lymphadenopathy or JVD. Lungs: Clear to auscultation bilaterally. HEART: S1, S2. ABDOMEN: Soft, nontender, nondistended. LOWER EXTREMITIES: Without edema. Calves nontender. SKIN: Without rash. NEUROLOGIC: Nonfocal. LAB AND X-RAYS: UA is unremarkable. Alcohol level at 5 a.m. was 72. Sodium 134, potassium 3.8, chl oride 97, bicarb 25, BUN 18, creatinine 1.3, glucose 139. LFTs normal. Lipase elevated at 357. Coa gs: INR is 1.3. White count 6, hematocrit 36.6, platelets are 156,000. EKG shows sinus tachycardia about 100 with normal axis and intervals, no ST or T-wave changes. There is a wavy baseline. Abdominal and chest CT showed no evidence of visceral organ injury. There is circumferential thicken ing of esophagus, as well as thickening of the bladder. T and L-spine MRI and CT show L2 compression fracture. Head CT shows mild atrophy, otherwise unremarkable. ASSESSMENT/PLAN: 67-year-old gentleman with trauma and L2 fracture. 1. L2 fracture. Management per Neurosurgery. It sounds like they are going to put him in a brace w ith bed rest for a couple of days. 2. Alcoholism. The patient is at risk for alcohol withdrawal given that it sounds like he drank fro m 11 a.m. until about 10 o'clock last night, and he still has a positive alcohol level this morning, and it sounds like this behavior is somewhat characteristic for him. He currently is not in alcohol withdrawal. I have put him on CIWA. 3. Esophageal thickening. We will discuss this with him tomorrow. He is a candidate for outpatient endoscopy. 4. Bladder thickening. Candidate for outpatient cystoscopy. 5. Atrial fibrillation. No need for telemetry. Will follow. Clinically in sinus. DISPOSITION: Inpatient status. Thank you this consultation. Hospital Medicine will follow. /[id number]/MODL
[2018-05-19] MEDS: LISINOPRIL 20 MG TAB PO SCH (15:59)
--- NOTE | 2018-05-19 18:06 | CPEKG ---
Test Reason : OPEN Blood Pressure : / mmHG Vent. Rate : 100 BPM Atrial Rate : 105 BPM P-R Int : 160 ms QRS Dur : 090 ms QT Int : 353 ms P-R-T Axes : 049 -07 031 degrees QTc Int : 456 ms Sinus tachycardia PVC Low voltage, extremity leads Confirmed by Livier Dubon ([id number]) on 05/19/2018 6:05:38 PM Referred By: NANCI KEITA Confirmed By:Livier Dubon
[2018-05-19] MEDS: CARVEDILOL 25 MG TAB PO SCH (18:31)
[2018-05-19] MEDS: BUDESONIDE 180 MCG MDI IH SCH (20:32)
[2018-05-19] MEDS ORDERED: CARVEDILOL 25 MG TAB PO SCH (21:00)
[2018-05-19] MEDS: ATORVASTATIN CALCIUM 20 MG TAB PO SCH (23:00)
--- NOTE | 2018-05-20 07:24 | CPEKG ---
Test Reason : OPEN Blood Pressure : / mmHG Vent. Rate : 146 BPM Atrial Rate : 098 BPM P-R Int : 162 ms QRS Dur : 090 ms QT Int : 331 ms P-R-T Axes : 059 014 040 degrees QTc Int : 516 ms Sinus tachycardia Ventricular tachycardia, unsustained Low voltage, extremity leads Confirmed by Luis Angel Branham ([id number]) on 05/20/2018 7:23:52 AM Referred By: Confirmed By:Luis Angel Branham
--- NOTE | 2018-05-20 07:24 | NEUSURGPN ---
Assessment/Plan: Assessment: 67 yo male that is admitted to Trauma with IM involved after fall. Pt has L2 fracture. Pt has a hx of afib/ETOH abuse hx Plan: -L2 fracture: MRI and CT reviewed with Dr Rey and we recommend bracing at this time -PT/OT ordered but on hold until brace is fit and xrays checked -pending brace later this am -pt will need upright xrays in brace once fit -xrays ordered to be done once upright -bedrest until brace is fit -pt will need to be off of work for 2-3 months, light duty. No bending or twisting -ok for Eliquis at this time -pt seen by Dr Rey as well -call with any questions or concerns -take medications as directed Subjective: Awake and alert. NAD. Eating/drinking and voiding. No f/c/n/v/d. No brian/neck/ chest/abd or gu complaints. Objective: AAO x 3, PERRLA/EOMI no droop CN 2-12 grossly intact +lt touch 5/5 BUE/BLE = Neuro Check Frequency: per routine Urinary Catheter in Place: No - Physician Discussed Patient with Dr.: Candido Patient Seen by : Candido Neurosurgery Physical Exam - Vitals, I&O, Labs I and O 05/19/18 05/20/18 05/21/18 05:59 05:59 05:59 Intake Total 1060 Output Total 850 Balance 210 Weight 74.843 kg Intake: Oral (ml) 500 IV Infused (ml) 560 Lr 1,000 ml @ 75 mls/hr 560 IV CONT POLINA Rx#: [id number] Output: Urine (ml) 850 Urinal 850 Other: Output Comment Urinal Blood tinged urine Number of Voids Urinal 1 Vital Signs Temp Pulse Resp BP Pulse Ox 36.4 C 83 16 141/92 H 95 05/20/18 04:10 05/20/18 04:10 05/20/18 04:10 05/20/18 04:10 05/20/18 04:10 ICD10 Worksheet Patient Problems: Problems Problem Status Onset Back pain Acute Compression fracture of L2 Acute Fall Acute Alcohol abuse Acute C7 cervical fracture Acute Concussion Acute Dizziness Acute Facial laceration Acute Fall at home Acute Hypertension Acute Hypotension Acute Hypoxemia Acute Recurrent falls Acute
[2018-05-20] MEDS: CHOLECALCIFEROL VIT D3 1,000 UNITS TAB PO SCH (08:02)
[2018-05-20] MEDS: CARVEDILOL 25 MG TAB PO SCH ×2 (08:03→18:11)
[2018-05-20] MEDS: LISINOPRIL 20 MG TAB PO SCH (08:07)
[2018-05-20] MEDS: POTASSIUM CL 20 MEQ TAB PO SCH (08:07)
[2018-05-20] MEDS: HYDROCODONE/APAP 5/325 TAB PO PRN ×2 (08:13→14:52)
--- NOTE | 2018-05-20 08:45 | HOSPPROG ---
Hospitalist Progress Note Assessment/Plan: #L2 fracture: brace in place today, repeat Xrays per NSGY -PT, will need rehab at DC #Permanent atrial fibrillation: s/p cardioversion. LINQ recorder. Coreg. Restart Eliquis #Etoh abuse: no signs of w/d #BUSHRA: hold EDILBERTO-I, Lasix #HTN: hydral, Coreg. Hold EDILBERTO-I with BUSHRA #Diet: regular #DVT ppx: on Eliquis #Disp: inpatient admission for pain control, PT Subjective: pain 1.5/10. No CP or SOB Objective: Vital Signs Temp Pulse Resp BP Pulse Ox 36.9 C 81 17 158/97 H 95 05/20/18 07:46 05/20/18 07:46 05/20/18 07:46 05/20/18 07:46 05/20/18 07:46 05/19/18 05/20/18 05/21/18 05:59 05:59 05:59 Intake Total 1060 Output Total 850 200 Balance 210 -200 PT 16.1 SEC (12.0-15.0) H 05/19/18 05:20 INR 1.27 (0.83-1.16) H 05/19/18 05:20 - Time Spent With Patient Time Spent with Patient: greater than 35 minutes Time Spent with Patient: Greater than 35 minutes spent on this patients care, greater than 50% of time spent counseling, educating, and coordinating care regarding the above mentioned plan. - Physical Exam Constitutional: no apparent distress Eyes: PERRL Ears, Nose, Mouth, Throat: moist mucous membranes Cardiovascular: irregularly irregular Respiratory: no respiratory distress Gastrointestinal: normoactive bowel sounds, distension, No tenderness Genitourinary: No sher in urethra Skin: warm Musculoskeletal: full muscle strength Neurologic: AAOx3, CN II-XII Intact Psychiatric: interacting appropriately ICD10 Worksheet Patient Problems: Problems Problem Status Onset Back pain Acute Compression fracture of L2 Acute Fall Acute Alcohol abuse Acute C7 cervical fracture Acute Concussion Acute Dizziness Acute Facial laceration Acute Fall at home Acute Hypertension Acute Hypotension Acute Hypoxemia Acute Recurrent falls Acute
[2018-05-20] MEDS ORDERED: FUROSEMIDE 40 MG TAB PO SCH (09:00)
[2018-05-20] MEDS ORDERED: CARVEDILOL 25 MG TAB PO SCH (09:00)
[2018-05-20] MEDS: BUDESONIDE 180 MCG MDI IH SCH ×2 (09:05→22:50)
--- NOTE | 2018-05-20 10:29 | ASMTCMCOM ---
CM Note CM Note Notes: Reviwed chart, pt admitted after a fall at home, he sustained an L2 fracture. Pt lives at home alone but has a local sister and daughter. PT/OT evals pending back brace arriving from [facility], also will be evaluated for Inpt Rehab. DC Plan: TBD Date Signed: 05/20/2018 10:29 AM Electronically Signed By:Wendie Loco RN
--- NOTE | 2018-05-20 11:12 | TRAUMAPN ---
Trauma Progress Note - Problem/Surgery Performed (1) Compression fracture of L2 Assessment/Plan: non-operative management recommended by neurosurgery awaiting brace fitting before mobilizing PT/OT may benefit from IP Rehab vs. SNF when ready for discharge Qualifiers: Encounter type: initial encounter Fracture type: closed Qualified Code(s) : S32.020A - Wedge compression fracture of second lumbar vertebra, initial encounter for closed fracture (2) Fall Assessment/Plan: Patient falls alot/EtOH may be a contributing factor Qualifiers: Encounter type: initial encounter Qualified Code(s): W19.XXXA - Unspecified fall, initial encounter Assessment/Plan: S/p fall with acute L2 compression fx. We discussed the injury and I showed him the lumbar CT images We reviewed restrictions during the recovery period and these will be established and reinforced by neurosurgery, OT/PT Subjective: awake and alert/denies abd pain, chest pain, weakness/paresthesias Objective: Vital Signs Temp Pulse Resp BP Pulse Ox 36.9 C 81 17 158/97 H 95 05/20/18 07:46 05/20/18 07:46 05/20/18 07:46 05/20/18 07:46 05/20/18 07:46 05/19/18 05/20/18 05/21/18 05:59 05:59 05:59 Intake Total 1060 400 Output Total 850 300 Balance 210 100 PT 16.1 SEC (12.0-15.0) H 05/19/18 05:20 INR 1.27 (0.83-1.16) H 05/19/18 05:20 - C-Spine Clearance Cervical Spine Cleared: Yes Provider who Cleared Cervical Spine: Yong Physical Exam - Physical Exam General Appearance: WD/WN, no apparent distress Respiratory: lungs clear, decreased breath sounds Cardiac/Chest: normal peripheral pulses, regular rate, rhythm Peripheral Pulses: 4+: dorsalis-pedis (R), dorsalis-pedis (L) Abdomen: non-tender, soft, distended Skin: warm/dry Extremities: non-tender, normal inspection Neuro/Psych: alert, normal mood/affect, oriented x 3 Time Spent w/Patient (minutes): 20
--- NOTE | 2018-05-20 15:06 | PDMN ---
Medical Necessity Medical necessity: Pt meets IP criteria as of 05/20/1028 per and ELLIOTT PERDUE ( Musculoskeletal Disease GRG); los > 2 mn for ongoing tx and management of L2 compression fracture s/p fall causing inability to ambulate and perform baseline ADL's d/t pain; requiring pain management, PT/OT, fitting for brace, surgical consultation and management of chronic conditions including afib and EOTH abuse.
--- NOTE | 2018-05-20 17:00 | CPEKG ---
Test Reason : OPEN Blood Pressure : / mmHG Vent. Rate : 097 BPM Atrial Rate : 097 BPM P-R Int : 124 ms QRS Dur : 099 ms QT Int : 372 ms P-R-T Axes : 040 025 067 degrees QTc Int : 473 ms Sinus rhythm Low voltage, extremity leads Nonspecific T abnormalities, lateral leads Confirmed by Livier Dubon ([id number]) on 05/20/2018 5:00:12 PM Referred By: NANCI KEITA Confirmed By:Livier Dubon
[2018-05-20] MEDS ORDERED: LACTULOSE 20 GM/30 ML UDCUP PO PRN (17:21)
[2018-05-20] MEDS ORDERED: MAGNESIUM HYDROXIDE 30 ML UDCUP PO PRN (17:21)
[2018-05-20] MEDS ORDERED: BISACODYL 10 MG SUPP PR PRN (17:21)
[2018-05-20] MEDS: SENNOSIDES/DOCUSATE SODIUM TAB PO SCH (21:38)
[2018-05-20] MEDS: APIXABAN 5 MG TAB PO SCH (21:38)
[2018-05-20] MEDS: ATORVASTATIN CALCIUM 20 MG TAB PO SCH (21:39)
[2018-05-21] MEDS: BUDESONIDE 180 MCG MDI IH SCH ×4 (02:02→20:36)
[2018-05-21] MEDS: HYDROCODONE/APAP 5/325 TAB PO PRN ×3 (07:19→20:34)
--- NOTE | 2018-05-21 08:36 | NEUSURGPN ---
Assessment/Plan: Assessment/Plan: Assessment: 67 yo male that is admitted to Trauma with IM involved after fall. Pt has L2 fracture. Pt has a hx of afib/ETOH abuse hx Plan: -L2 fracture: MRI and CT reviewed with Dr Rey and we recommend bracing at this time. Custom clam shell has been fit by Faby. -PT/OT to resume today - Upright x-rays in brace reviewed and show stable compression fractures - Optimize pain management - doing well with norco and muscle relaxants -pt will need to be off of work for 2-3 months, light duty. No bending or twisting -ok for Eliquis at this time -call with any questions or concerns - Dispo planning: Pending therapy recommendations. Subjective: Awake, alert. No pain while laying in bed but with movement shoots to a 10. Tolerating brace so far. No new numbness, tingling, pain in legs. Objective: AAO x 3, PERRLA/EOMI no droop CN 2-12 grossly intact +lt touch 5/5 BUE/BLE = - Physician Discussed Patient with : Candido Neurosurgery Physical Exam - Vitals, I&O, Labs I and O 05/20/18 05/21/18 05/22/18 05:59 05:59 05:59 Intake Total 1000 Output Total 400 250 Balance 600 -250 Intake: Oral (ml) 1000 Output: Urine (ml) 400 250 Urinal 400 250 Other: Number of Voids Urinal 1 Vital Signs Temp Pulse Resp BP Pulse Ox 37.1 C 99 16 144/99 H 91 L 05/21/18 08:00 05/21/18 08:00 05/21/18 08:00 05/21/18 08:00 05/21/18 08:00 Laboratory Results 05/21/18 05:45 ICD10 Worksheet Patient Problems: Problems Problem Status Onset Back pain Acute Compression fracture of L2 Acute Fall Acute Alcohol abuse Acute C7 cervical fracture Acute Concussion Acute Dizziness Acute Facial laceration Acute Fall at home Acute Hypertension Acute Hypotension Acute Hypoxemia Acute Recurrent falls Acute
[2018-05-21] MEDS ORDERED: POTASSIUM CL 20 MEQ/15 ML UDCUP PO ONE (08:37)
[2018-05-21] MEDS: SENNOSIDES/DOCUSATE SODIUM TAB PO SCH ×2 (09:06→20:35)
[2018-05-21] MEDS: CHOLECALCIFEROL VIT D3 1,000 UNITS TAB PO SCH (09:07)
[2018-05-21] MEDS: CARVEDILOL 25 MG TAB PO SCH ×2 (09:09→18:44)
[2018-05-21] MEDS: APIXABAN 5 MG TAB PO SCH ×2 (09:10→20:35)
[2018-05-21] MEDS: POTASSIUM CL 20 MEQ TAB PO SCH (09:40)
--- NOTE | 2018-05-21 11:46 | SOAPPROG ---
SOAP Progress Note Assessment/Plan: Assessment: 67 year old male s/p mechanical fall at home resulting in L2 compression fracture. Patient has history of similar falls and old compression fractures are noted on imaging. Patient has had brace fitted and x-ray done with patient wearing brace looks good. Patient is currently sating in low 90s on 2L O2. Plan: Patient can be discharged pending clearance from neurosurgery, PT/OT/ST Plan to discharge to SNF for rehab May need to be discharged with home O2 depending on sats Subjective: Patient doing well, denies pain. Reports comfortable fit with brace. Single system,, stable. Discussed case with neurosurgery, will sign off Objective: General: Pleasant, well-nourished male sitting upright in bed HENT: Normocephalic, no gross hearing deficits, mucous membranes moist, pupils equal and round, no scleral icterus Cardiac: Regular rate and rhythm. Lungs: No increased work of breathing, Lungs CTA Skin: Warm and dry. Psych: Mood and affect normal Neuro: Grossly intact. No focal deficit appreciated. 05/21/18 11:37 05/21/18 16:05 Objective: Vital Signs Temp Pulse Resp BP Pulse Ox 37.1 C 98 16 144/99 H 91 L 05/21/18 08:00 05/21/18 09:09 05/21/18 08:00 05/21/18 09:09 05/21/18 08:00 Laboratory Results 05/21/18 05:45 05/20/18 05/21/18 05/22/18 05:59 05:59 05:59 Intake Total 1000 Output Total 400 250 Balance 600 -250 PT 16.1 SEC (12.0-15.0) H 05/19/18 05:20 INR 1.27 (0.83-1.16) H 05/19/18 05:20 ICD10 Worksheet Patient Problems: Problems Problem Status Onset Back pain Acute Compression fracture of L2 Acute Fall Acute Alcohol abuse Acute C7 cervical fracture Acute Concussion Acute Dizziness Acute Facial laceration Acute Fall at home Acute Hypertension Acute Hypotension Acute Hypoxemia Acute Recurrent falls Acute
--- NOTE | 2018-05-21 13:02 | HOSPPROG ---
Hospitalist Progress Note Assessment/Plan: #L2 fracture: clam-shell brace in place today, repeat Xrays stable -PT, will need rehab at [place] #Hypotension: reduce Coreg, hold hydral this evening. Opioids may be contribute #Permanent atrial fibrillation: s/p cardioversion. LINQ recorder. Coreg. Restart Eliquis #Constipation: bowel regimen #Etoh abuse: no signs of w/d #BUSHRA: hold EDILBERTO-I, Lasix #HTN: hydral, Coreg. Hold EDILBERTO-I with BUSHRA #Diet: regular #DVT ppx: on Eliquis #Disp: inpatient admission for pain control, PT Subjective: PT went well. Pain controlled. Constipated Objective: Vital Signs Temp Pulse Resp BP Pulse Ox 36.7 C 100 16 87/58 L 95 05/21/18 12:00 05/21/18 12:00 05/21/18 12:00 05/21/18 12:00 05/21/18 12:00 Laboratory Results 05/21/18 05:45 05/20/18 05/21/18 05/22/18 05:59 05:59 05:59 Intake Total 1000 Output Total 400 250 Balance 600 -250 PT 16.1 SEC (12.0-15.0) H 05/19/18 05:20 INR 1.27 (0.83-1.16) H 05/19/18 05:20 - Time Spent With Patient Time Spent with Patient: greater than 35 minutes Time Spent with Patient: Greater than 35 minutes spent on this patients care, greater than 50% of time spent counseling, educating, and coordinating care regarding the above mentioned plan. ICD10 Worksheet Patient Problems: Problems Problem Status Onset Back pain Acute Compression fracture of L2 Acute Fall Acute Alcohol abuse Acute C7 cervical fracture Acute Concussion Acute Dizziness Acute Facial laceration Acute Fall at home Acute Hypertension Acute Hypotension Acute Hypoxemia Acute Recurrent falls Acute
[2018-05-21] MEDS ORDERED: NS 1,000 ML IV SCH ×2 (13:15→19:30)
--- NOTE | 2018-05-21 13:47 | ASMTCAGE ---
CAGE Do you feel you ought to Answers: Yes cut down on your drinking or drug use? Do people annoy you by Answers: No criticizing your drinking or drug use? Do you feel guilty about Answers: Yes your drinking or drug use? 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 Additional Comments Pt declines ETOH resources Date Signed: 05/21/2018 01:46 PM Electronically Signed By:RO Sanchez
--- NOTE | 2018-05-21 13:54 | ASMTCMCOM ---
CM Note CM Note Notes: Pt CAGE completed, pt declines ETOH resources. Pt was provided ETOH resources when he was here 02/2018 for another fall while intoxicated. Pt reports after that hospitalization he quit drinking for some time and started again. Pt reports he is now committed to sobriety, he has his sister and daughter who will help him in recovery. Pt knows he cannot drink at SNF. OT rec SNF, pt [facility] CM to follow. Date Signed: 05/21/2018 01:54 PM Electronically Signed By:RO Sanchez
[2018-05-21] MEDS: ATORVASTATIN CALCIUM 20 MG TAB PO SCH (20:34)
[2018-05-22] MEDS: HYDROCODONE/APAP 5/325 TAB PO PRN ×2 (05:25→11:39)
[2018-05-22] MEDS: SENNOSIDES/DOCUSATE SODIUM TAB PO SCH ×2 (07:59→21:23)
[2018-05-22] MEDS: CARVEDILOL 25 MG TAB PO SCH ×2 (07:59→18:21)
[2018-05-22] MEDS: CHOLECALCIFEROL VIT D3 1,000 UNITS TAB PO SCH (08:00)
[2018-05-22] MEDS: POTASSIUM CL 20 MEQ TAB PO SCH (08:00)
[2018-05-22] MEDS: APIXABAN 5 MG TAB PO SCH ×2 (08:00→21:23)
[2018-05-22] MEDS: BUDESONIDE 180 MCG MDI IH SCH ×2 (08:07→21:34)
[2018-05-22] MEDS: LISINOPRIL 20 MG TAB PO SCH (11:42)
--- NOTE | 2018-05-22 14:19 | SOAPPROG ---
SOAP Progress Note Assessment/Plan: Assessment: 67 yo male sp fall with L2 burst fx. Stable on repeat xrays performed in LSO brace. Tolerating brace and PT/OT Plan: Patient needs to be off work for 2-3 months and restrict to light duty and strict brace use. Ok to continue Eliquis for Afib. Likely DC to [facility] rehab in AM. 05/22/18 14:16 05/22/18 14:19 Subjective: OUt of bed in bedside chair. Clamshell brace in place and pt tolerating well. Denies numbness, tingling or weakness. Objective: Vital Signs Temp Pulse Resp BP Pulse Ox 36.9 C 83 17 120/79 93 05/22/18 07:48 05/22/18 11:50 05/22/18 07:48 05/22/18 11:50 05/22/18 12:00 Laboratory Results 05/21/18 05:45 05/21/18 05/22/18 05/23/18 05:59 05:59 05:59 Intake Total 1000 1200 Output Total 400 350 650 Balance 600 850 -650 PT 16.1 SEC (12.0-15.0) H 05/19/18 05:20 INR 1.27 (0.83-1.16) H 05/19/18 05:20 NEuro: A+Ox 4 ACEVEDO, sens +LT 5/5 bilateral LE, ambulatory ICD10 Worksheet Patient Problems: Problems Problem Status Onset Back pain Acute Compression fracture of L2 Acute Fall Acute Alcohol abuse Acute C7 cervical fracture Acute Concussion Acute Dizziness Acute Facial laceration Acute Fall at home Acute Hypertension Acute Hypotension Acute Hypoxemia Acute Recurrent falls Acute
--- NOTE | 2018-05-22 14:24 | PDIAF ---
- Diagnosis Diagnosis: L2 burst fracture Code Status: Full Code - Medication Management Discharge Medications: electronically signed and located in the Home Medication List. - Orders Services needed: Registered Nurse, Physical Therapy, Occupational Therapy Diet Recommendation: no restrictions on diet Diet Texture: Regular Texture Diet Sutures/[place] Site: N/A Activity/Weight Bearing Restrictions: no bending, twisting or lifting over 5 lbs x 3 months. Wear clamshell brace when out of bed. Log roll, spinal precautions Equipment: clamshell brace - Labs/Radiology Imaging Orders: ap/lat xrays Lumbar spine: 1 month from now (06/21) - Follow Up Care Current Providers and Referrals: Patient,NotPresent [Unknown] - As per Instructions Miriam Rey MD [Medical Doctor] -
[2018-05-22] MEDS: METHOCARBAMOL 750 MG TAB PO PRN (15:13)
[2018-05-22] MEDS: THIAMINE HCL 100 MG TAB PO SCH (15:13)
--- NOTE | 2018-05-22 15:36 | ASMTCMCOM ---
CM Note CM Note Notes: Informed pt [facility] no SNF bed available. [facility] when medically [facility]. Date Signed: 05/22/2018 03:35 PM Electronically Signed By:RO Sanchez
--- NOTE | 2018-05-22 15:55 | HOSPPROG ---
Hospitalist Progress Note Assessment/Plan: #L2 fracture: clam-shell brace in place, repeat Xrays stable -PT, will need rehab at [place] -pain control with [place], Robaxin added #Hypotension: resolved. Reduced Coreg. Restarted EDILBERTO-I. Add back hydral if needed #Permanent atrial fibrillation: s/p cardioversion. LINQ recorder. Coreg. Restart Eliquis #Constipation: bowel regimen #Etoh abuse: no signs of w/d #BUSHRA: resolved. Resume diuretic and Lisinopril #Diet: regular #DVT ppx: on Eliquis #Disp: inpatient admission for pain control, PT Subjective: working with PT. Pain controlled, having BMs Objective: Vital Signs Temp Pulse Resp BP Pulse Ox 36.9 C 86 17 149/92 H 94 05/22/18 15:04 05/22/18 15:04 05/22/18 15:04 05/22/18 15:04 05/22/18 15:04 Laboratory Results 05/21/18 05:45 05/21/18 05/22/18 05/23/18 05:59 05:59 05:59 Intake Total 1000 1200 Output Total 400 350 650 Balance 600 850 -650 PT 16.1 SEC (12.0-15.0) H 05/19/18 05:20 INR 1.27 (0.83-1.16) H 05/19/18 05:20 - Time Spent With Patient Time Spent with Patient: greater than 35 minutes Time Spent with Patient: Greater than 35 minutes spent on this patients care, greater than 50% of time spent counseling, educating, and coordinating care regarding the above mentioned plan. - Physical Exam Constitutional: no apparent distress Eyes: PERRL Ears, Nose, Mouth, Throat: moist mucous membranes Cardiovascular: regular rate and rhythym, No edema Respiratory: no respiratory distress Gastrointestinal: normoactive bowel sounds Genitourinary: No sher in urethra Musculoskeletal: other (clam-shell back brace in place) Neurologic: AAOx3, CN II-XII Intact Psychiatric: interacting appropriately ICD10 Worksheet Patient Problems: Problems Problem Status Onset Back pain Acute Compression fracture of L2 Acute Fall Acute Alcohol abuse Acute C7 cervical fracture Acute Concussion Acute Dizziness Acute Facial laceration Acute Fall at home Acute Hypertension Acute Hypotension Acute Hypoxemia Acute Recurrent falls Acute
[2018-05-22] MEDS ORDERED: METHOCARBAMOL 750 MG TAB PO SCH (16:00)
[2018-05-22] MEDS: POLYETHYLENE GLYCOL 3350 17 GM PKT PO PRN (17:14)
[2018-05-22] MEDS: ATORVASTATIN CALCIUM 20 MG TAB PO SCH (21:23)
[2018-05-23] MEDS: POLYETHYLENE GLYCOL 3350 17 GM PKT PO PRN (06:07)
[2018-05-23 07:19] VITALS: BP 151/107
[2018-05-23] MEDS: METHOCARBAMOL 750 MG TAB PO PRN (07:28)
[2018-05-23] MEDS: BUDESONIDE 180 MCG MDI IH SCH (08:11)
[2018-05-23] MEDS: CARVEDILOL 25 MG TAB PO SCH (08:18)
[2018-05-23] MEDS: APIXABAN 5 MG TAB PO SCH (08:18)
[2018-05-23] MEDS: POTASSIUM CL 20 MEQ TAB PO SCH (08:19)
[2018-05-23] MEDS: LISINOPRIL 20 MG TAB PO SCH (08:19)
[2018-05-23] MEDS: SENNOSIDES/DOCUSATE SODIUM TAB PO SCH (08:19)
[2018-05-23] MEDS: CHOLECALCIFEROL VIT D3 1,000 UNITS TAB PO SCH (08:19)
[2018-05-23] MEDS: THIAMINE HCL 100 MG TAB PO SCH (08:21)
--- NOTE | 2018-05-23 08:42 | NEUSURGPN ---
Date of Surgery: 05/21/18 Post Op Day: 2 Assessment/Plan: Assessment: 67 yr old M with L2 burst fx Plan: -Patient in clamshell brace, ok to don at edge of bed if able to avoid twisting -Ok to dc to rehab today -Will have patient follow up in 4 weeks with xrays Patient discussed with Dr Rey Please call neurosurgery with any questions/concerns Subjective: Doing well, walking halls, denies leg pain/symptoms Objective: AxO x4 ACEVEDO x4 5/5 BUE, BLE Brace on Neuro Check Frequency: per routine Urinary Catheter in Place: No - Physician Discussed Patient with : [facility] Physical Exam - Vitals, I&O, Labs I and O 05/22/18 05/23/18 05/24/18 05:59 05:59 05:59 Intake Total 1200 Output Total 350 700 100 Balance 850 -700 -100 Intake: Oral (ml) 1200 Output: Urine (ml) 350 700 100 Toilet 100 700 Urinal 250 100 Other: Intake Quantity Yes Yes Yes Sufficient Number of Voids Toilet 1 1 Urinal 1 Number of Stools Toilet 1 Vital Signs Temp Pulse Resp BP Pulse Ox 36.6 C 81 16 151/107 H 94 05/23/18 07:19 05/23/18 07:19 05/23/18 07:19 05/23/18 07:19 05/23/18 07:19 Laboratory Results 05/23/18 04:28 ICD10 Worksheet Patient Problems: Problems Problem Status Onset Back pain Acute Compression fracture of L2 Acute Fall Acute Alcohol abuse Acute C7 cervical fracture Acute Concussion Acute Dizziness Acute Facial laceration Acute Fall at home Acute Hypertension Acute Hypotension Acute Hypoxemia Acute Recurrent falls Acute
--- NOTE | 2018-05-23 08:48 | PDIAF ---
- Diagnosis Diagnosis: L2 burst fracture Code Status: Full Code - Medication Management Discharge Medications: electronically signed and located in the Home Medication List. - Orders Services needed: Registered Nurse, Physical Therapy, Occupational Therapy Diet Recommendation: no restrictions on diet Diet Texture: Regular Texture Diet Sutures/[place] Site: N/A Activity/Weight Bearing Restrictions: no bending, twisting or lifting over 5 lbs x 3 months. Wear clamshell brace when out of bed. Log roll, spinal precautions Equipment: clamshell brace Additional Instructions: Wear brace when out of bed Ok to place brace on at edge of bed if no twisting is involved Avoid bending and twisting Do not lift greater than 10 pounds - Labs/Radiology Imaging Orders: ap/lat xrays Lumbar spine: 1 month from now (06/21) - Follow Up Care Current Providers and Referrals: Patient,NotPresent [Unknown] - As per Instructions Miriam Rey MD [Medical Doctor] - follow up as scheduled (Follow up in 4 weeks with new xray lumbar spine )
--- NOTE | 2018-05-23 10:10 | ASMTLACE ---
LACE Length of stay for Answers: 4-6 days current admission Acuity / Level of Answers: Yes Care: Did the patient have an inpatient admission? Comorbidities - select Answers: Opioid dependence all that apply / Chronic pain Other Notes: AFib; HLD; HTN # of Emergency department Answers: 3-4 visits in the last 6 months Social determinants Answers: History of substance abuse (ETOH, street drugs, prescription drugs, etc.) Score: 18 Date Signed: 05/23/2018 10:09 AM Electronically Signed By:RO Sanchez
--- NOTE | 2018-05-23 10:44 | ASMTCMCOM ---
CM Note CM Note Notes: Pt medically stable for d/c to [facility]. Orders sent in [employer]. PERLA Heath to call report. Pt declines [facility] transport, wants his sister to take him she wll take him around noon. Date Signed: 05/23/2018 10:44 AM Electronically Signed By:RO Sanchez
[2018-05-23] MEDS: HYDROCODONE/APAP 5/325 TAB PO PRN (10:51)
--- NOTE | 2018-05-23 13:51 | ASDISCHSUM ---
Discharge Information Plan Status:SNF Medically Cleared to Leave: Discharge Date:05/23/2018 12:12 PM CM D/C Disposition: ADT D/C Disposition:Other Rehab, Not [facility] Projected Discharge Date:05/23/2018 11:00 AM Transportation at D/C: Discharge Delay Reason: Follow-Up Date:05/23/2018 11:00 AM Discharge Slot: Final Diagnosis: Placement Information Referral Type:*Retirement/SNF Referral ID:[id number] Provider Name:[facility] Address 1:[address] Address 2: City:[place] Selection Factors: State:[place] Patient Contact Information Contact Name:NISHA Relationship:Sister Address:[address] [place] [address] Work Phone: City:[facility] Phone: State/Zip Code:[place] [address] Email: Financial Information Financial Class:Medicare Primary Plan Desc:MEDICARE INPATIENT Primary Plan Number:[id number] Secondary Plan Desc:FELIXA Secondary Plan Number:[id number] Assessment Information LACE LACE Length of stay for Answers: 4-6 days current admission Acuity / Level of Answers: Yes Care: Did the patient have an inpatient admission? Comorbidities - select Answers: Opioid dependence all that apply / Chronic pain Other Notes: AFib; HLD; HTN # of Emergency department Answers: 3-4 visits in the last 6 months Social determinants Answers: History of substance abuse (ETOH, street drugs, prescription drugs, etc.) Score: 18 Date Signed: 05/23/2018 10:09 AM Electronically Signed By:RO Sanchez [facility] CM Progress Note CM Note CM Note Notes: Reviwed chart, pt admitted after a fall at home, he sustained an L2 fracture. Pt lives at home alone but has a local sister and daughter. PT/OT artie pending back brace arriving from [facility], also will be evaluated for Inpt Rehab. DC Plan: TBD Date Signed: 05/20/2018 10:29 AM Electronically Signed By:Wendie Loco RN CAGE Questionnaire CAGE Do you feel you ought to Answers: Yes cut down on your drinking or drug use? Do people annoy you by Answers: No criticizing your drinking or drug use? Do you feel guilty about Answers: Yes your drinking or drug use? Do you drink or use drugs Answers: No first thing in the morning (Eye Physical Therapy Supervisor)? Additional Comments Pt declines ETOH resources Date Signed: 05/21/2018 01:46 PM Electronically Signed By:RO Sanchez [facility] CM Progress Note CM Note CM Note Notes: Pt CAGE completed, pt declines ETOH resources. Pt was provided ETOH resources when he was here 02/2018 for another fall while intoxicated. Pt reports after that hospitalization he quit drinking for some time and started again. Pt reports he is now committed to sobriety, he has his sister and daughter who will help him in recovery. Pt knows he cannot drink at SNF. OT rec SNF, pt requests referrals to [facility] (referrals sent in [employer]). CM to follow. Date Signed: 05/21/2018 01:54 PM Electronically Signed By:RO Sanchez [facility] CM Progress Note CM Note CM Note Notes: Informed pt [facility] has no SNF bed available. Pt will d/c to [facility] when medically stable. Date Signed: 05/22/2018 03:35 PM Electronically Signed By:RO Sanchez [facility] CM Progress Note CM Note CM Note Notes: Pt medically stable for d/c to [facility]. Orders sent in [employer]. PERLA Heath to call report. Pt declines [facility] transport, wants his sister to take him she wll take him around noon. Date Signed: 05/23/2018 10:44 AM Electronically Signed By:RO Sanchez Intervention Information Intervention Type:*GIBSON-Signed Date of Service:05/20/2018 02:02 PM Patient Type:Observation Staff Member:Pena, Arely Hours: Discipline: Severity: Comment:
--- NOTE | 2018-05-26 10:20 | GDS ---
[f rep st] DISCHARGE SUMMARY PRIMARY DIAGNOSIS: L2 burst fracture, low back pain. OPERATIONS AND PROCEDURES: None. HOSPITAL COURSE: The patient is a 67-year-old gentleman who suffered a fall on the night of May 18, 2018, and was unable to walk due to the pain in his back. He ultimately made it to the telephone and called EMS who brought him to the emergency department. CT of the lumbar spine demonstrated a s ignificant L2 compression fracture with retropulsion and fragment and severe canal stenosis. The pat ient was fit with a clamshell brace by [employer] and was treated with pain management. The patient's neurological exam remained intact, and he denied any radicular symptoms including weakness or saddle anesthesia. The patient's pain was well controlled, and he was discharged to a rehab facil ity on May 23, 2018. CONSULTATIONS: Medicine Team, Physical and Occupational Therapy. COMPLICATIONS: None. DISCHARGE CONDITION: Stable. DISCHARGE INSTRUCTIONS: The patient is to wear brace anytime he is out of bed. It is okay to put th e brace on the edge of the bed if he is able to avoid twisting to get to the edge of the bed. The pa tient is to avoid lifting greater than 10 pounds. We have recommended that he refrain from work for 2-3 months and participate in light duty activities only. It is okay for the patient to continue his Eliquis for atrial fibrillation. X-rays performed in the LSO brace demonstrated a stable L2 fractur e. The patient is instructed to follow up in the office with Dr. Rey in 3-4 weeks with x-rays. T he patient is instructed to call the office with any questions or concerns prior to his followup darrian peres /[id number]/[id number]
== END 2018-05-23 12:12 | DRG 552 ==
LOC: EDUNIT# → F3N 10:29 → OBSVTOIN 05-20 14:36
PROVIDERS: ADMIT Surgery; ATTEND Surgery
DX: S32.021A Stable burst fracture of second lumbar vertebra, initial encounter for closed fracture (principal); W19.XXXA Unspecified fall, initial encounter; Y92.010 Kitchen of single-family (private) house as the place of occurrence of the external cause; E86.9 Volume depletion, unspecified; I48.2 Chronic atrial fibrillation; F10.20 Alcohol dependence, uncomplicated; Y90.3 Blood alcohol level of 60-79 mg/100 ml; E78.5 Hyperlipidemia, unspecified; I10 Essential (primary) hypertension; K59.00 Constipation, unspecified; Z79.01 Long term (current) use of anticoagulants
CPT/HCPCS: 82435-PO; 82565-PO; 82947-PO; 84132-PO; 84295-PO; 84484-ER; 84520-PO; 85014-ER; 96374; 97116-GP; 97162-GP; 97165-GO; 97535-GO; G0480; J1170; J2060; J2270; J2405; Q9967

== ENCOUNTER → 2018-06-11 | Outpatient (CLI) | payer OTHER | LOC: FIMAGING 08:38 | PROVIDERS: ATTEND Neurological Surgery | DX: S32.009D Unspecified fracture of unspecified lumbar vertebra, subsequent encounter for fracture with routine healing (principal) ==

== ENCOUNTER → 2018-08-06 | Outpatient (CLI) | payer OTHER | LOC: FIMAGING 08:43 | PROVIDERS: ATTEND Physician Assistant | DX: S32.021D Stable burst fracture of second lumbar vertebra, subsequent encounter for fracture with routine healing (principal); S22.070D Wedge compression fracture of T9-T10 vertebra, subsequent encounter for fracture with routine healing; S22.080D Wedge compression fracture of T11-T12 vertebra, subsequent encounter for fracture with routine healing ==

== ENCOUNTER → 2018-09-03 | Outpatient (CLI) | payer OTHER | LOC: FIMAGING 13:00 | PROVIDERS: ATTEND Internal Medicine | DX: Z13.820 Encounter for screening for osteoporosis (principal); M81.0 Age-related osteoporosis without current pathological fracture; S22.000A Wedge compression fracture of unspecified thoracic vertebra, initial encounter for closed fracture; Z87.311 Personal history of (healed) other pathological fracture; Z91.81 History of falling ==

== ENCOUNTER → 2018-09-23 | Outpatient (CLI) | payer OTHER | LOC: BMCIMAGING 11:12 ==

== ENCOUNTER → 2018-10-06 | Outpatient (CLI) | payer OTHER | LOC: FIMAGING 08:17 ==